=== PATIENT | male | born 1945 | race Caucasian/White ===

== ENCOUNTER 2018-02-11 00:27 | Emergency (ER) | payer MEDICARE ==
[~2018-02-11] VITALS: Ht 165.1 cm; Wt 97.5 kg
[~2018-02-11 00:27] MED LIST: AMLO5 PO; ASCO500 PO; Adult Low Dose81 MG PO; CALCAVITD PO; CLON.5 PO; DILT120 PO; GLUCOSAMINE &1 EACH PO; LOSARTAN POTASS25 MG PO; METO25ER PO; MULVITMIND PO; QUIN5 PO; SPIR25 PO; WARF5 PO; [UNRECOGNIZED DRUG - CODE] PO
[2018-02-11] MEDS ORDERED: WARF2.5 PO (01:05)
[2018-02-11] MEDS ORDERED: DONE10 PO (01:05)
[2018-02-11 01:23] LABS: BASOPHILS ABSOLUTE AUTO 0.02 K/mm3 (0.00-0.23); BASOPHILS PERCENT AUTO 0 % (0-2); EOSINOPHILS PERCENT AUTO 1 % (0-6); Hematocrit 37.7 % (37.0-53.0); Hemoglobin 12.4 g/dL (13.5-17.5); IMMATURE GRAN ABSOLUTE AUTO 0.06 K/mm3 (0.00-0.10); IMMATURE GRAN PERCENT AUTO 1 % (0-1); LYMPHOCYTES ABSOLUTE AUTO 2.03 K/mm3 (0.84-5.20); LYMPHOCYTES PERCENT AUTO 26 % (21-46); MONOCYTES PERCENT AUTO 9 % (4-13); Mean Corpuscular HGB 30.9 pg (26.0-34.0); Mean Corpuscular HGB Conc 32.9 g/dL (31.5-36.5); Mean Corpuscular Volume 94 fL (80-100); Mean Platelet Volume 9.2 fL (9.1-12.4); NEUTROPHILS ABSOLUTE AUTO 4.78 K/mm3 (1.96-9.15); NEUTROPHILS PERCENT AUTO 62 % (41-73); Platelet Count 276 K/mm3 (150-400); RDW Coefficient Variation 14.6 % (11.7-14.2); RDW Standard Deviation 50.6 fL (35.1-46.3); Red Blood Cell Count 4.01 M/mm3 (4.30-5.90); White Blood Cell Count 7.69 K/mm3 (4.00-11.30)
[2018-02-11 01:35] LABS: International Normalized Ratio 1.89; Prothrombin Time Results 20.1 Sec (9.7-11.5)
[2018-02-11 01:41] LABS: Alanine Aminotransfer (ALT/SGP 21 U/L (12-78); Albumin, Blood 3.2 g/dL (3.4-5.0); Alk Phos 51 U/L (50-136); Anion Gap 4 mmol/L (6-16); Aspartate Aminotrans (AST/SGOT 14 U/L (12-37); Bilirubin, Total 0.5 mg/dL (0.1-1.0); Blood Urea Nitrogen 19 mg/dL (8-24); Bun/Creatinine Ratio 24.7 (12.0-20.0); CO2, Blood 29 mmol/L (21-32); Calcium, Blood 8.2 mg/dL (8.5-10.1); Chloride, Blood 107 mmol/L (98-108); Creatinine, Blood 0.77 mg/dL (0.60-1.20); Globulin, Blood 3.1 g/dL (2.2-4.0); Glomerular Filtration Rate >60 (60-); Glucose, Blood 90 mg/dL (70-99); Potassium, Blood 4.3 mmol/L (3.5-5.5); Sodium, Blood 140 mmol/L (136-145); Total Protein, Blood 6.3 g/dL (6.4-8.2)
== END 2018-02-11 02:10 | disposition home or self-care (01) ==
LOC: ER 00:27
PROVIDERS: Emergency Medicine
DX: S30.0XXA Contusion of lower back and pelvis, initial encounter (principal); S80.12XA Contusion of left lower leg, initial encounter; I48.91 Unspecified atrial fibrillation; I11.0 Hypertensive heart disease with heart failure; I50.9 Heart failure, unspecified; Z91.048 Other nonmedicinal substance allergy status; Z79.01 Long term (current) use of anticoagulants; Z79.899 Other long term (current) drug therapy; Z87.891 Personal history of nicotine dependence; W19.XXXA Unspecified fall, initial encounter
CPT/HCPCS: 36415; 73502; 80053; 85025; 85610; 99283

== ENCOUNTER 2018-03-07 08:26 | Day surgery (SDC) | payer MEDICARE ==
[~2018-03-07] VITALS: Ht 165.1 cm; Wt 97.5 kg
[~2018-03-07 08:26] MED LIST changes: +DONE10 PO; +WARF2.5 PO
== END 2018-03-07 11:10 | disposition home or self-care (01) ==
LOC: ORSCSDS 08:26
PROVIDERS: Ophthalmology
PROC: 08RK3JZ Replacement of Left Lens with Synthetic Substitute, Percutaneous Approach (ICD-10-PCS; principal; 2018-03-07 10:00)
DX: H25.12 Age-related nuclear cataract, left eye (principal); I10 Essential (primary) hypertension; I48.91 Unspecified atrial fibrillation; G47.33 Obstructive sleep apnea (adult) (pediatric); E66.01 Morbid (severe) obesity due to excess calories; Z68.35 Body mass index [BMI] 35.0-35.9, adult; Z79.01 Long term (current) use of anticoagulants; Z79.899 Other long term (current) drug therapy
CPT/HCPCS: J2250; J3301; J7040; V2632

== ENCOUNTER 2018-04-25 07:11 | Day surgery (SDC) | payer MEDICARE ==
[~2018-04-25] VITALS: Ht 165.1 cm; Wt 99.5 kg
[~2018-04-25 07:11] MED LIST changes: +CALCA400CH PO; +Co Q-1010 MG PO; +FLONASE ALLERG9.9 ML; +GLUC500 PO; +HYDRA25; +PREDNISOLONE RIGHTEYE; +ZYRTEC10 M3 PO
== END 2018-04-25 08:56 | disposition home or self-care (01) ==
LOC: ORSCSDS 07:11
PROVIDERS: Ophthalmology
PROC: 08RJ3JZ Replacement of Right Lens with Synthetic Substitute, Percutaneous Approach (ICD-10-PCS; principal; 2018-04-25 08:30)
DX: H25.11 Age-related nuclear cataract, right eye (principal); I48.91 Unspecified atrial fibrillation; G47.33 Obstructive sleep apnea (adult) (pediatric); I10 Essential (primary) hypertension; Z79.01 Long term (current) use of anticoagulants; Z79.899 Other long term (current) drug therapy; Z87.891 Personal history of nicotine dependence
CPT/HCPCS: J2250; J3010; J3301; J7040; V2632

== ENCOUNTER 2019-10-10 23:14 | Emergency (ER) | payer MEDICARE ==
[~2019-10-10] VITALS: Ht 170.2 cm; Wt 93.9 kg
[2019-10-11 00:42] LABS: BASOPHILS ABSOLUTE AUTO 0.03 K/mm3 (0.00-0.23); BASOPHILS PERCENT AUTO 1 % (0-2); EOSINOPHILS ABSOLUTE AUTO 0.11 K/mm3 (0.00-0.68); EOSINOPHILS PERCENT AUTO 2 % (0-6); Hemoglobin 14.8 g/dL (13.5-17.5); IMMATURE GRAN ABSOLUTE AUTO 0.01 K/mm3 (0.00-0.10); IMMATURE GRAN PERCENT AUTO 0 % (0-1); LYMPHOCYTES ABSOLUTE AUTO 1.91 K/mm3 (0.84-5.20); LYMPHOCYTES PERCENT AUTO 35 % (21-46); MONOCYTES ABSOLUTE AUTO 0.42 K/mm3 (0.16-1.47); MONOCYTES PERCENT AUTO 8 % (4-13); Mean Corpuscular HGB 29.8 pg (26.0-34.0); Mean Corpuscular HGB Conc 32.2 g/dL (31.5-36.5); Mean Corpuscular Volume 93 fL (80-100); Mean Platelet Volume 10.3 fL (9.1-12.4); NEUTROPHILS ABSOLUTE AUTO 2.99 K/mm3 (1.96-9.15); NEUTROPHILS PERCENT AUTO 55 % (41-73); Platelet Count 242 K/mm3 (150-400); RDW Coefficient Variation 13.9 % (11.7-14.2); RDW Standard Deviation 47.4 fL (35.1-46.3); Red Blood Cell Count 4.96 M/mm3 (4.30-5.90); White Blood Cell Count 5.47 K/mm3 (4.00-11.30)
[2019-10-11 01:02] LABS: Troponin I <0.015 ng/mL (0.000-0.040)
[2019-10-11 01:03] LABS: Alanine Aminotransfer (ALT/SGP 19 U/L (12-78); Albumin, Blood 3.8 g/dL (3.4-5.0); Alk Phos 81 U/L (50-136); Anion Gap 5 mmol/L (6-16); Aspartate Aminotrans (AST/SGOT 16 U/L (12-37); Bilirubin, Total 0.3 mg/dL (0.1-1.0); Blood Urea Nitrogen 11 mg/dL (8-24); Bun/Creatinine Ratio 14.7 (12.0-20.0); CO2, Blood 30 mmol/L (21-32); Calcium, Blood 8.8 mg/dL (8.5-10.1); Chloride, Blood 105 mmol/L (98-108); Creatinine, Blood 0.75 mg/dL (0.60-1.20); Globulin, Blood 3.7 g/dL (2.2-4.0); Glomerular Filtration Rate >60 (60-); Glucose, Blood 95 mg/dL (70-99); Potassium, Blood 4.2 mmol/L (3.5-5.5); Sodium, Blood 140 mmol/L (136-145); Total Protein, Blood 7.5 g/dL (6.4-8.2)
== END 2019-10-11 02:36 | disposition home or self-care (01) ==
LOC: ER 23:14
PROVIDERS: Emergency Medicine
DX: I10 Essential (primary) hypertension (principal); Z79.899 Other long term (current) drug therapy
CPT/HCPCS: 36415; 80053; 84484; 85025; 93005; 93010; 99283-25

== ENCOUNTER → 2020-10-07 | Outpatient (CLI) | payer OTHER ==
[~2020-10-07] MED LIST changes: +ATOR40TA PO; +FURO20 PO; +QUET25 PO; +TAMS.4ER PO
[2020-10-08 09:16] LABS: Bilirubin, Urine Neg (Neg); Blood, Urine 1+ (Neg); Glucose Qualitative, Urine Neg (Neg); Ketones, Urine 1+ (Neg); Leukocyte Esterase, Urine 1+ (Neg); Nitrite, Urine Neg (Neg); Protein, Urine 2+ (Neg); Specific Gravity, Urine 1.015 (1.003-1.022); Urobilinogen, Urine NORM (Normal)
[2020-10-08 09:22] LABS: Appearance, Urine Hazy (Clear); Color, Urine Yellow (P-Yellow)
[2020-10-08 09:24] LABS: Red Blood Cells, Urine 0-2 /hpf (0-2); Squamous Epithelial Cells Rare /hpf (Few); White Blood Cells, Urine 0-2 /hpf (0-5)
[2020-10-08 09:25] LABS: Bacteria Few /hpf; Mucus Mod (0-Heavy)
== END | disposition home or self-care (01) ==
LOC: LAB 08:00 → LAB SHORT 08:00
PROVIDERS: Internal Medicine
DX: R30.0 Dysuria (principal)
CPT/HCPCS: 81001; 87086

== ENCOUNTER 2020-12-23 16:18 | Emergency (ER) | payer OTHER ==
[~2020-12-23] VITALS: Ht 172.7 cm; Wt 95.2 kg
[~2020-12-23 16:18] MED LIST changes: -ATOR40TA PO; -FURO20 PO; -QUET25 PO; -TAMS.4ER PO
[2020-12-23 18:28] LABS: BASOPHILS ABSOLUTE AUTO 0.02 K/mm3 (0.00-0.23); BASOPHILS PERCENT AUTO 0 % (0-2); EOSINOPHILS ABSOLUTE AUTO 0.05 K/mm3 (0.00-0.68); EOSINOPHILS PERCENT AUTO 1 % (0-6); Hematocrit 41.7 % (37.0-53.0); Hemoglobin 13.7 g/dL (13.5-17.5); IMMATURE GRAN ABSOLUTE AUTO 0.01 K/mm3 (0.00-0.10); IMMATURE GRAN PERCENT AUTO 0 % (0-1); LYMPHOCYTES ABSOLUTE AUTO 1.63 K/mm3 (0.84-5.20); LYMPHOCYTES PERCENT AUTO 32 % (21-46); MONOCYTES PERCENT AUTO 8 % (4-13); Mean Corpuscular HGB 29.9 pg (26.0-34.0); Mean Corpuscular HGB Conc 32.9 g/dL (31.5-36.5); Mean Corpuscular Volume 91 fL (80-100); Mean Platelet Volume 9.2 fL (9.1-12.4); NEUTROPHILS ABSOLUTE AUTO 3.05 K/mm3 (1.96-9.15); NEUTROPHILS PERCENT AUTO 59 % (41-73); Platelet Count 262 K/mm3 (150-400); RDW Coefficient Variation 15.5 % (11.7-14.2); RDW Standard Deviation 51.5 fL (35.1-46.3); Red Blood Cell Count 4.58 M/mm3 (4.30-5.90); White Blood Cell Count 5.16 K/mm3 (4.00-11.30)
[2020-12-23] MEDS ORDERED: FURO20 PO (18:41)
[2020-12-23 18:50] LABS: Alanine Aminotransfer (ALT/SGP 16 U/L (12-78); Albumin, Blood 3.7 g/dL (3.4-5.0); Alk Phos 81 U/L (50-136); Anion Gap 3 mmol/L (6-16); Aspartate Aminotrans (AST/SGOT 11 U/L (12-37); Bilirubin, Total 0.4 mg/dL (0.1-1.0); Blood Urea Nitrogen 15 mg/dL (8-24); Bun/Creatinine Ratio 21.8 (12.0-20.0); CO2, Blood 31 mmol/L (21-32); Calcium, Blood 8.8 mg/dL (8.5-10.1); Chloride, Blood 105 mmol/L (98-108); Creatinine, Blood 0.69 mg/dL (0.60-1.20); Globulin, Blood 3.6 g/dL (2.2-4.0); Glomerular Filtration Rate >60 (60-); Glucose, Blood 100 mg/dL (70-99); Potassium, Blood 4.4 mmol/L (3.5-5.5); Sodium, Blood 139 mmol/L (136-145); Total Protein, Blood 7.3 g/dL (6.4-8.2)
[2020-12-23 19:13] LABS: International Normalized Ratio 2.87; Prothrombin Time Results 28.9 Sec (9.7-11.5)
== END 2020-12-23 20:20 | disposition home or self-care (01) ==
LOC: ER 16:18
PROVIDERS: Physician Assistant
DX: R47.1 Dysarthria and anarthria (principal); R47.01 Aphasia; I11.0 Hypertensive heart disease with heart failure; I50.9 Heart failure, unspecified; I48.91 Unspecified atrial fibrillation; Z79.01 Long term (current) use of anticoagulants; Z91.09 Other allergy status, other than to drugs and biological substances; Z79.899 Other long term (current) drug therapy
CPT/HCPCS: 36415; 70450; 80053; 85025; 85610; 93005; 93010; 99285-25

== ENCOUNTER 2021-02-14 10:56 | Emergency (ER) | payer OTHER ==
[~2021-02-14] VITALS: Ht 177.8 cm; Wt 98.0 kg
[~2021-02-14 10:56] MED LIST changes: +FURO20 PO
== END 2021-02-14 14:55 | disposition home or self-care (01) ==
LOC: ER 10:56
DX: R53.1 Weakness (principal); Z91.09 Other allergy status, other than to drugs and biological substances; Z79.899 Other long term (current) drug therapy
CPT/HCPCS: 36415; 73080; 73502; 93005; 93010; 99284-25

== ENCOUNTER 2021-02-16 21:28 | Emergency (ER) | payer OTHER ==
[~2021-02-16] VITALS: Ht 167.6 cm; Wt 99.3 kg
== END 2021-02-17 00:27 | disposition home or self-care (01) ==
LOC: ER 21:28
DX: R30.0 Dysuria (principal); R35.0 Frequency of micturition; I48.91 Unspecified atrial fibrillation; I10 Essential (primary) hypertension; Z87.891 Personal history of nicotine dependence; Z91.09 Other allergy status, other than to drugs and biological substances; Z79.899 Other long term (current) drug therapy
CPT/HCPCS: 36415; 51798; 74176; 80053; 81001; 85025; 99284-25

== ENCOUNTER 2021-02-18 20:00 | Emergency (ER) | payer OTHER ==
[~2021-02-18] VITALS: Ht 170.2 cm; Wt 99.3 kg
[2021-02-18 21:13] LABS: BASOPHILS ABSOLUTE AUTO 0.02 K/mm3 (0.00-0.23); BASOPHILS PERCENT AUTO 0 % (0-2); EOSINOPHILS ABSOLUTE AUTO 0.18 K/mm3 (0.00-0.68); EOSINOPHILS PERCENT AUTO 4 % (0-6); Hematocrit 37.3 % (37.0-53.0); Hemoglobin 12.3 g/dL (13.5-17.5); IMMATURE GRAN ABSOLUTE AUTO 0.02 K/mm3 (0.00-0.10); IMMATURE GRAN PERCENT AUTO 0 % (0-1); LYMPHOCYTES ABSOLUTE AUTO 1.97 K/mm3 (0.84-5.20); LYMPHOCYTES PERCENT AUTO 43 % (21-46); MONOCYTES PERCENT AUTO 9 % (4-13); Mean Corpuscular HGB 30.5 pg (26.0-34.0); Mean Corpuscular Volume 93 fL (80-100); Mean Platelet Volume 9.4 fL (9.1-12.4); NEUTROPHILS ABSOLUTE AUTO 1.95 K/mm3 (1.96-9.15); NEUTROPHILS PERCENT AUTO 43 % (41-73); Platelet Count 233 K/mm3 (150-400); RDW Coefficient Variation 15.7 % (11.7-14.2); RDW Standard Deviation 53.7 fL (35.1-46.3); Red Blood Cell Count 4.03 M/mm3 (4.30-5.90); White Blood Cell Count 4.54 K/mm3 (4.00-11.30)
[2021-02-18 21:38] LABS: Alanine Aminotransfer (ALT/SGP 29 U/L (12-78); Albumin, Blood 3.3 g/dL (3.4-5.0); Albumin/Globulin Ratio 0.9 (0.8-1.8); Alk Phos 82 U/L (50-136); Anion Gap 7 mmol/L (6-16); Aspartate Aminotrans (AST/SGOT 36 U/L (12-37); Bilirubin, Total 0.5 mg/dL (0.1-1.0); Blood Urea Nitrogen 22 mg/dL (8-24); Bun/Creatinine Ratio 29.3 (12.0-20.0); CO2, Blood 28 mmol/L (21-32); Calcium, Blood 8.2 mg/dL (8.5-10.1); Chloride, Blood 104 mmol/L (98-108); Creatinine, Blood 0.75 mg/dL (0.60-1.20); Globulin, Blood 3.6 g/dL (2.2-4.0); Glomerular Filtration Rate >60 (60-); Glucose, Blood 99 mg/dL (70-99); Potassium, Blood 3.9 mmol/L (3.5-5.5); Sodium, Blood 139 mmol/L (136-145); Total Protein, Blood 6.9 g/dL (6.4-8.2)
== END 2021-02-19 00:49 | disposition home or self-care (01) ==
LOC: ER 20:00
PROVIDERS: Physician Assistant
DX: N32.81 Overactive bladder (principal); Z79.01 Long term (current) use of anticoagulants; Z79.899 Other long term (current) drug therapy
CPT/HCPCS: 36415; 51798; 80053; 85025; 99283

== ENCOUNTER 2021-02-26 19:10 | Emergency (ER) | payer OTHER ==
[~2021-02-26] VITALS: Ht 177.8 cm; Wt 113.4 kg
[2021-02-26] MEDS ORDERED: TAMS.4ER PO (19:43)
[2021-02-26] MEDS ORDERED: ATOR40TA PO (19:44)
[2021-02-26 20:12] LABS: BASOPHILS ABSOLUTE AUTO 0.03 K/mm3 (0.00-0.23); BASOPHILS PERCENT AUTO 1 % (0-2); EOSINOPHILS ABSOLUTE AUTO 0.11 K/mm3 (0.00-0.68); EOSINOPHILS PERCENT AUTO 2 % (0-6); Hematocrit 36.2 % (37.0-53.0); Hemoglobin 12.2 g/dL (13.5-17.5); IMMATURE GRAN ABSOLUTE AUTO 0.01 K/mm3 (0.00-0.10); IMMATURE GRAN PERCENT AUTO 0 % (0-1); LYMPHOCYTES ABSOLUTE AUTO 2.01 K/mm3 (0.84-5.20); LYMPHOCYTES PERCENT AUTO 37 % (21-46); MONOCYTES ABSOLUTE AUTO 0.65 K/mm3 (0.16-1.47); MONOCYTES PERCENT AUTO 12 % (4-13); Mean Corpuscular HGB 30.7 pg (26.0-34.0); Mean Corpuscular HGB Conc 33.7 g/dL (31.5-36.5); Mean Corpuscular Volume 91 fL (80-100); Mean Platelet Volume 9.1 fL (9.1-12.4); NEUTROPHILS ABSOLUTE AUTO 2.65 K/mm3 (1.96-9.15); NEUTROPHILS PERCENT AUTO 49 % (41-73); Platelet Count 233 K/mm3 (150-400); RDW Coefficient Variation 15.3 % (11.7-14.2); RDW Standard Deviation 51.1 fL (35.1-46.3); Red Blood Cell Count 3.98 M/mm3 (4.30-5.90); White Blood Cell Count 5.46 K/mm3 (4.00-11.30)
[2021-02-26 20:46] LABS: Alanine Aminotransfer (ALT/SGP 23 U/L (12-78); Albumin, Blood 3.4 g/dL (3.4-5.0); Alk Phos 85 U/L (50-136); Anion Gap 5 mmol/L (6-16); Aspartate Aminotrans (AST/SGOT 30 U/L (12-37); Bilirubin, Total 0.6 mg/dL (0.1-1.0); Blood Urea Nitrogen 11 mg/dL (8-24); Bun/Creatinine Ratio 18.1 (12.0-20.0); CO2, Blood 25 mmol/L (21-32); Calcium, Blood 8.2 mg/dL (8.5-10.1); Chloride, Blood 102 mmol/L (98-108); Creatinine, Blood 0.61 mg/dL (0.60-1.20); Globulin, Blood 3.4 g/dL (2.2-4.0); Glomerular Filtration Rate >60 (60-); Glucose, Blood 97 mg/dL (70-99); Magnesium, Blood 1.9 mg/dL (1.6-2.4); Phosphorus, Blood 2.7 mg/dL (2.5-4.9); Sodium, Blood 132 mmol/L (136-145); Total Protein, Blood 6.8 g/dL (6.4-8.2)
[2021-02-26 20:54] LABS: Source, Urine Clean Catch
[2021-02-26 20:59] LABS: Bilirubin, Urine Neg (Neg); Blood, Urine 1+ (Neg); Glucose Qualitative, Urine Neg (Neg); Ketones, Urine 1+ (Neg); Leukocyte Esterase, Urine Neg (Neg); Nitrite, Urine Neg (Neg); Protein, Urine Neg (Neg); Urobilinogen, Urine NORM (Normal)
[2021-02-26 21:05] LABS: Appearance, Urine Clear (Clear); Color, Urine Pale Yellow (P-Yellow)
[2021-02-26 21:06] LABS: Red Blood Cells, Urine 0-2 /hpf (0-2); White Blood Cells, Urine 0-2 /hpf (0-5)
[2021-02-26 21:07] LABS: Bacteria Few /hpf; Squamous Epithelial Cells Rare /hpf (Few)
[2021-02-27] MEDS ORDERED: QUET25 PO (00:13)
== END 2021-02-27 00:55 | disposition home or self-care (01) ==
LOC: ER 19:10
PROVIDERS: Physician Assistant
DX: F03.91 Unspecified dementia, unspecified severity, with behavioral disturbance (principal); R45.1 Restlessness and agitation; I10 Essential (primary) hypertension; I48.91 Unspecified atrial fibrillation; Z79.01 Long term (current) use of anticoagulants; Z79.899 Other long term (current) drug therapy; Z91.09 Other allergy status, other than to drugs and biological substances; Z87.891 Personal history of nicotine dependence
CPT/HCPCS: 70450; 80053; 81001; 83735; 84100; 85025; 93005; 93010; 96374; 96376; 99285-25; A9270; J2060

== ENCOUNTER 2021-06-07 20:02 | Emergency (ER) | payer OTHER ==
[~2021-06-07] VITALS: Ht 172.7 cm; Wt 95.2 kg
[~2021-06-07 20:02] MED LIST changes: +ATOR40TA PO; +Amlodipine Bes2.5 MG PO; +QUET25 PO; +TAMS.4ER PO
[2021-06-07 20:17] LABS: Source, Urine Clean Catch
[2021-06-07 20:20] LABS: Appearance, Urine Hazy (Clear); Bilirubin, Urine Neg (Neg); Blood, Urine 2+ (Neg); Color, Urine Yellow (P-Yellow); Glucose Qualitative, Urine Neg (Neg); Ketones, Urine Neg (Neg); Leukocyte Esterase, Urine 3+ (Neg); Nitrite, Urine Neg (Neg); Protein, Urine 2+ (Neg); Urobilinogen, Urine NORM (Normal)
[2021-06-07 20:31] LABS: Spermatozoa Many /hpf
[2021-06-07 20:32] LABS: Bacteria Rare /hpf; Red Blood Cells, Urine 0-2 /hpf (0-2); Squamous Epithelial Cells Rare /hpf (Few); White Blood Cells, Urine 25-50 /hpf (0-5)
[2021-06-07 20:50] LABS: BASOPHILS ABSOLUTE AUTO 0.03 K/mm3 (0.00-0.23); BASOPHILS PERCENT AUTO 0 % (0-2); EOSINOPHILS ABSOLUTE AUTO 0.04 K/mm3 (0.00-0.68); EOSINOPHILS PERCENT AUTO 0 % (0-6); Hematocrit 36.5 % (37.0-53.0); Hemoglobin 12.1 g/dL (13.5-17.5); IMMATURE GRAN ABSOLUTE AUTO 0.05 K/mm3 (0.00-0.10); IMMATURE GRAN PERCENT AUTO 1 % (0-1); LYMPHOCYTES PERCENT AUTO 12 % (21-46); MONOCYTES ABSOLUTE AUTO 0.41 K/mm3 (0.16-1.47); MONOCYTES PERCENT AUTO 4 % (4-13); Mean Corpuscular HGB 30.6 pg (26.0-34.0); Mean Corpuscular HGB Conc 33.2 g/dL (31.5-36.5); Mean Corpuscular Volume 92 fL (80-100); Mean Platelet Volume 10.5 fL (9.1-12.4); NEUTROPHILS ABSOLUTE AUTO 8.59 K/mm3 (1.96-9.15); NEUTROPHILS PERCENT AUTO 83 % (41-73); Platelet Count 202 K/mm3 (150-400); RDW Coefficient Variation 14.8 % (11.7-14.2); RDW Standard Deviation 50.6 fL (35.1-46.3); Red Blood Cell Count 3.95 M/mm3 (4.30-5.90); White Blood Cell Count 10.32 K/mm3 (4.00-11.30)
[2021-06-07 21:09] LABS: Alanine Aminotransfer (ALT/SGP 19 U/L (12-78); Albumin, Blood 2.8 g/dL (3.4-5.0); Albumin/Globulin Ratio 0.7 (0.8-1.8); Alk Phos 99 U/L (50-136); Anion Gap 4 mmol/L (6-16); Aspartate Aminotrans (AST/SGOT 22 U/L (12-37); Bilirubin, Total 0.6 mg/dL (0.1-1.0); Blood Urea Nitrogen 17 mg/dL (8-24); CO2, Blood 25 mmol/L (21-32); Calcium, Blood 7.9 mg/dL (8.5-10.1); Chloride, Blood 107 mmol/L (98-108); Creatinine, Blood 0.68 mg/dL (0.60-1.20); Globulin, Blood 3.8 g/dL (2.2-4.0); Glomerular Filtration Rate >60 (60-); Glucose, Blood 124 mg/dL (70-99); Potassium, Blood 4.3 mmol/L (3.5-5.5); Sodium, Blood 136 mmol/L (136-145); Total Protein, Blood 6.6 g/dL (6.4-8.2)
== END 2021-06-07 23:31 | disposition left against medical advice (07) ==
LOC: ER 20:02
PROVIDERS: Physician Assistant
DX: R53.1 Weakness (principal); R41.0 Disorientation, unspecified; Z79.01 Long term (current) use of anticoagulants; Z79.899 Other long term (current) drug therapy; Z53.20 Procedure and treatment not carried out because of patient's decision for unspecified reasons
CPT/HCPCS: 80053; 81001; 83605; 85025; 87077; 87086; 87186; 99283

== ENCOUNTER 2021-06-08 17:33 | Inpatient (IN) | payer OTHER, MEDICARE ==
[~2021-06-08] VITALS: Ht 170.2 cm; Wt 104.7 kg
[2021-06-08 19:50] LABS: Source, Urine Clean Catch
[2021-06-08 19:55] LABS: Appearance, Urine Clear (Clear); Bilirubin, Urine Neg (Neg); Blood, Urine 5+ (Neg); Color, Urine Yellow (P-Yellow); Glucose Qualitative, Urine Neg (Neg); Ketones, Urine Neg (Neg); Leukocyte Esterase, Urine 3+ (Neg); Nitrite, Urine Pos (Neg); Protein, Urine 3+ (Neg); Urobilinogen, Urine 1+ (Normal)
[2021-06-08 20:06] LABS: Bacteria Many /hpf; Red Blood Cells, Urine 0-2 /hpf (0-2); Squamous Epithelial Cells Not Seen /hpf (Few)
[2021-06-08 20:46] LABS: BASOPHILS ABSOLUTE AUTO 0.02 K/mm3 (0.00-0.23); BASOPHILS PERCENT AUTO 0 % (0-2); EOSINOPHILS ABSOLUTE AUTO 0.01 K/mm3 (0.00-0.68); EOSINOPHILS PERCENT AUTO 0 % (0-6); Hematocrit 38.4 % (37.0-53.0); Hemoglobin 12.6 g/dL (13.5-17.5); IMMATURE GRAN ABSOLUTE AUTO 0.16 K/mm3 (0.00-0.10); IMMATURE GRAN PERCENT AUTO 1 % (0-1); LYMPHOCYTES ABSOLUTE AUTO 0.96 K/mm3 (0.84-5.20); LYMPHOCYTES PERCENT AUTO 6 % (21-46); MONOCYTES ABSOLUTE AUTO 0.72 K/mm3 (0.16-1.47); MONOCYTES PERCENT AUTO 5 % (4-13); Mean Corpuscular HGB 30.7 pg (26.0-34.0); Mean Corpuscular HGB Conc 32.8 g/dL (31.5-36.5); Mean Corpuscular Volume 94 fL (80-100); NEUTROPHILS ABSOLUTE AUTO 13.82 K/mm3 (1.96-9.15); NEUTROPHILS PERCENT AUTO 88 % (41-73); Platelet Count 171 K/mm3 (150-400); RDW Coefficient Variation 14.8 % (11.7-14.2); RDW Standard Deviation 51.3 fL (35.1-46.3); White Blood Cell Count 15.69 K/mm3 (4.00-11.30)
[2021-06-08 21:06] LABS: Alanine Aminotransfer (ALT/SGP 19 U/L (12-78); Albumin/Globulin Ratio 0.8 (0.8-1.8); Alk Phos 114 U/L (50-136); Anion Gap 6 mmol/L (6-16); Aspartate Aminotrans (AST/SGOT 22 U/L (12-37); Bilirubin, Total 0.6 mg/dL (0.1-1.0); Blood Urea Nitrogen 15 mg/dL (8-24); Bun/Creatinine Ratio 23.1 (12.0-20.0); CO2, Blood 25 mmol/L (21-32); Calcium, Blood 8.6 mg/dL (8.5-10.1); Chloride, Blood 107 mmol/L (98-108); Creatinine, Blood 0.65 mg/dL (0.60-1.20); Globulin, Blood 3.9 g/dL (2.2-4.0); Glomerular Filtration Rate >60 (60-); Glucose, Blood 128 mg/dL (70-99); Potassium, Blood 3.5 mmol/L (3.5-5.5); Sodium, Blood 138 mmol/L (136-145); Total Protein, Blood 6.9 g/dL (6.4-8.2); Troponin I <0.015 ng/mL (0.000-0.040)
--- NOTE | 2021-06-08 23:48 | NUR ---
transfer report from [facility] ECHOCARDIOGRAPHY TECH on PT with sepsis & dementia with UTI. HX AFIB with RVR on coumadin. Await admission. Fevers in ER 99.7 last. Recieved rocephin. at bedside but RN says she won't accompany to floor despite dementia.
[2021-06-09] MEDS ORDERED: WARF5 PO (01:00)
[2021-06-09] MEDS ORDERED: Flonase 0.05% N16 GM (01:07)
[2021-06-09] MEDS ORDERED: DOCU100 PO (01:08)
[2021-06-09] MEDS ORDERED: MELA3 PO (01:16)
[2021-06-09] MEDS ORDERED: MULTIPLE VITAM1 EACH PO (01:17)
[2021-06-09] MEDS ORDERED: IBUP600 PO (01:18)
[2021-06-09] MEDS ORDERED: ACET325 PO (01:18)
[2021-06-09] MEDS ORDERED: MIRALAX17 GM PO (01:20)
[2021-06-09] MEDS ORDERED: LUBRICATING TEA15 ML (01:22)
--- NOTE | 2021-06-09 03:28 | NUR ---
75 year old Male NAvy admitted with sepsis r/t UTI & he recieved 2 l NS in ER & rocephin. He has hypertension & dementia, with recent dehydration & falls poor oral intake. MARILIN on oral appliance at home, 2.5 l NC CPAP intil. is primary caregiver for PT who requires extensive care. PT's verified home RX & details PT unable to provide. takes PT's bilat hearing aides home & eyeglasses & [employer]. Full code status verified by . PT needs assist with using urinal voids 50 ml erin urine with urgency.
[2021-06-09 05:27] LABS: BASOPHILS ABSOLUTE AUTO 0.01 K/mm3 (0.00-0.23); BASOPHILS PERCENT AUTO 0 % (0-2); EOSINOPHILS ABSOLUTE AUTO 0.02 K/mm3 (0.00-0.68); EOSINOPHILS PERCENT AUTO 0 % (0-6); Hematocrit 32.8 % (37.0-53.0); Hemoglobin 10.8 g/dL (13.5-17.5); IMMATURE GRAN ABSOLUTE AUTO 0.06 K/mm3 (0.00-0.10); IMMATURE GRAN PERCENT AUTO 1 % (0-1); LYMPHOCYTES ABSOLUTE AUTO 1.86 K/mm3 (0.84-5.20); LYMPHOCYTES PERCENT AUTO 18 % (21-46); MONOCYTES ABSOLUTE AUTO 0.51 K/mm3 (0.16-1.47); MONOCYTES PERCENT AUTO 5 % (4-13); Mean Corpuscular HGB Conc 32.9 g/dL (31.5-36.5); Mean Corpuscular Volume 94 fL (80-100); Mean Platelet Volume 10.6 fL (9.1-12.4); NEUTROPHILS ABSOLUTE AUTO 7.73 K/mm3 (1.96-9.15); NEUTROPHILS PERCENT AUTO 76 % (41-73); Platelet Count 150 K/mm3 (150-400); RDW Standard Deviation 51.6 fL (35.1-46.3); Red Blood Cell Count 3.48 M/mm3 (4.30-5.90); White Blood Cell Count 10.19 K/mm3 (4.00-11.30)
[2021-06-09 05:36] LABS: International Normalized Ratio 2.27; Prothrombin Time Results 23.4 Sec (9.7-11.5)
[2021-06-09 05:59] LABS: Alanine Aminotransfer (ALT/SGP 17 U/L (12-78); Albumin, Blood 2.4 g/dL (3.4-5.0); Albumin/Globulin Ratio 0.7 (0.8-1.8); Alk Phos 99 U/L (50-136); Anion Gap 5 mmol/L (6-16); Aspartate Aminotrans (AST/SGOT 25 U/L (12-37); Bilirubin, Total 0.5 mg/dL (0.1-1.0); Blood Urea Nitrogen 12 mg/dL (8-24); Bun/Creatinine Ratio 18.8 (12.0-20.0); CO2, Blood 25 mmol/L (21-32); Calcium, Blood 7.8 mg/dL (8.5-10.1); Chloride, Blood 110 mmol/L (98-108); Creatinine, Blood 0.64 mg/dL (0.60-1.20); Globulin, Blood 3.4 g/dL (2.2-4.0); Glomerular Filtration Rate >60 (60-); Glucose, Blood 104 mg/dL (70-99); Potassium, Blood 3.5 mmol/L (3.5-5.5); Sodium, Blood 140 mmol/L (136-145); Total Protein, Blood 5.8 g/dL (6.4-8.2)
--- NOTE | 2021-06-09 06:00 | NUR ---
DR Dugan called & updated on reported swallow difficulty Speech therapy eval ordered.
--- NOTE | 2021-06-09 18:22 | NUR ---
SHIFT SUMMARY PT IS AO TO SELF AND FAMILY. PT DENIES PAIN, N/V, SOB. PT IS 2 MAX ASSIST TO BCC. NO PROCEDURES DONE THIS SHIFT. PT APPETITE IS MODERATE TO GOOD. PLAN IS TO MONITOR BLOOD CULTURES TOMORROW. PT'S IN TO VISIT THIS JOSEP. PT IS IN BED , CALL LIGHT IN REACH, ALARM ON.
[2021-06-10 05:31] LABS: International Normalized Ratio 1.95; Prothrombin Time Results 20.3 Sec (9.7-11.5)
--- NOTE | 2021-06-10 06:14 | NUR ---
75 year old MAle with dementia sepsis UTI continues with intermittant alertness but has periods where he has poor safety awareness. PT incontinent of urine large amts at night. He was able to have pelleted bowel movement on bedpan. Set off bed alarm multiple times this AM wanting to find his hat, get dressed etc. PT is 2 max assist for toileting bed mobility. not out of bed this shift. Very heary to turn & unable to ambulate. On oxygen 2 l NC for severe MARILIN
--- NOTE | 2021-06-10 17:28 | NUR ---
SHIFT SUMMARY PT IS AO TO FAMILY AND SELF. PT DENIES PAIN, N/V, SOB. PT WORKED WITH PT/OT WHO DETERMINED PT QUALIFIES FOR SNF ON DC. PT APPETITE IS GOD. NO PROCEDURES DONE THIS SHIFT. PT'S IN TO VISIT TODAY. PLAN IS FOR SNF PLACEMENT. PT IS IN BED, CALL LIGHT IN REACH, LOW POSITION.
--- NOTE | 2021-06-11 05:01 | NUR ---
SHIFT SUMMARY: PT IS ALERT AND ORIENTED TO SELF AND FAMILY. PT IS A HEAVY 2 PERSON ASSIST, NOT OUT OF BED OVERNIGHT. PT INCONTINENT SEVERAL TIMES, CHANGED AND CLEANED NEEDED. PT HAD A FEVER OVERNIGHT, GAVE PRN TYLENOL. PT DENIES PAIN, NAUSEA, VOMITING, AND SOB. 2.5 L O2 KEEPING SATS > 90%. PT SLEPT MUCH OF THE NIGHT WHEN NOT DISTURBED. BED IN LOW POSITION, CALL LIGHT WITHIN REACH, BED ALARM SET. WILL CONTINUE TO MONITOR AND REPORT TO DAY NURSE.
[2021-06-11 05:24] LABS: International Normalized Ratio 2.32; Prothrombin Time Results 23.9 Sec (9.7-11.5)
--- NOTE | 2021-06-11 12:37 | NUR ---
,TRAV, UPDATED ON PATIENT CONDITION.
--- NOTE | 2021-06-11 16:47 | NUR ---
ALERT TO SELF AND FAMILY. HX DEMENTIA. ON 2.5 LPM VIA N/C WHICH IS HIS NORM. HAS SLEEP APNEA BUT CAN NOT TOLERATE CPAP. BED ALARM ON. RELATIVE IN TO VISIT. WAS TOO DROWSEY THIS AM TO TAKE P.O. MEDS WITH AWARE. TM
[2021-06-12 05:08] LABS: International Normalized Ratio 2.64
[2021-06-12 05:31] LABS: Anion Gap 5 mmol/L (6-16); Blood Urea Nitrogen 14 mg/dL (8-24); Bun/Creatinine Ratio 21.8 (12.0-20.0); CO2, Blood 29 mmol/L (21-32); Calcium, Blood 8.3 mg/dL (8.5-10.1); Chloride, Blood 104 mmol/L (98-108); Creatinine, Blood 0.64 mg/dL (0.60-1.20); Glomerular Filtration Rate >60 (60-); Glucose, Blood 111 mg/dL (70-99); Potassium, Blood 3.5 mmol/L (3.5-5.5); Sodium, Blood 138 mmol/L (136-145)
--- NOTE | 2021-06-12 05:54 | NUR ---
SHIFT SUMMARY: PT IS ALERT AND CONFUSED AT BASELINE, HX OF DEMENTIA. PT IS A MAX ASSIST FOR TRANSFERS AND CHANGES, NOT OUT OF BED OVERNIGHT. INCONTINENT SEVERAL TIMES, CHANGED AND CLEANED NEEDED. PT ON 2.5 L O2 KEEPING SATS > 90%. PT REMAINED AFEBRILE OVERNIGHT. PT SHOWS NO S/S FOR PAIN, NAUSEA, VOMITING, OR SOB. POSS DC TODAY. BED IN LOW POSITION, CALL LIGHT WITHIN REACH. WILL CONTINUE TO MONITOR.
[2021-06-12] MEDS ORDERED: DOXY100 PO (12:00)
[2021-06-12 12:12] LABS: SARS-Cov-2 (COVID-19) PCR, MMC NEGATIVE (NEGATIVE)
--- NOTE | 2021-06-12 13:57 | NUR ---
Pt is ready to discharge to SNF. arrived to hospital and she states that pt appears miller and unwell - too unwell to go to SNF. She reports that his baseline temperature is 96 and he is 98 at this time, checked at her request. She concludes that he still has a fever since this is two degrees from his normal. She states that pt is breathing from his mouth and not his nose as usual either (reports that she noticed this when he first got sick on Monday. Call to Dr. Brown to come to room, as Zena () is requesting. He states he will come speak to her.
--- NOTE | 2021-06-12 15:12 | NUR ---
Pt has left for facility. has been at bedside for a few hours now. She spoke with Dr. Brown and is fine with the pt going to therapy. Pt dressed by staff and ready to go. Packet in [facility], given to EMS for transport. Attempted to call report X2 to [facility], however, nurse Venancio reports that he was not expecting an admit to come from the hospital today. Venancio has refused twice to take report on this patient, stating he didn't know about this admit, therefore is unable to receive report and unable to take patient today. Spoke to charge nurses and real estate legal secretary. Inserter reports that she has talked to Mary at [facility] and there should be no problems with the pt leaving for [facility] today. Discussed with charge nurses. Pt is currently on his way to [facility], all belonging are with pt's .
--- NOTE | 2021-06-12 15:35 | NUR ---
Report given to Venancio nurse, at [facility].
== END 2021-06-12 15:11 | DRG 871 ==
LOC: ER 17:33 → MEDS 22:35
PROVIDERS: Internal Medicine; Physician Assistant; ADMIT Internal Medicine
DX: A41.59 Other Gram-negative sepsis (principal); G92 Toxic encephalopathy; N39.0 Urinary tract infection, site not specified; I48.20 Chronic atrial fibrillation, unspecified; B96.1 Klebsiella pneumoniae [K. pneumoniae] as the cause of diseases classified elsewhere; I10 Essential (primary) hypertension; G31.83 Neurocognitive disorder with Lewy bodies; Z20.822 Contact with and (suspected) exposure to COVID-19; F02.80 Dementia in other diseases classified elsewhere, unspecified severity, without behavioral disturbance, psychotic disturbance, mood disturbance, and anxiety; G47.33 Obstructive sleep apnea (adult) (pediatric); Z79.899 Other long term (current) drug therapy; Z91.048 Other nonmedicinal substance allergy status; Z87.891 Personal history of nicotine dependence; Z79.01 Long term (current) use of anticoagulants
CPT/HCPCS: 36415; 71045; 80048; 80053; 81001; 83605; 84484; 85025; 85610; 87040; 87077; 87086; 87186; 92610; 93005; 93010; 96365; 97110; 97162; 97166; 97530; 99285-25; A9270; J0696; J7030; U0004

== ENCOUNTER → 2021-08-10 | Outpatient (CLI) | payer OTHER ==
[~2021-08-10] MED LIST changes: +ACET325 PO; +DOCU100 PO; +DOXY100 PO; +Flonase 0.05% N16 GM; +IBUP600 PO; +LUBRICATING TEA15 ML; +MELA3 PO; +MIRALAX17 GM PO; +MULTIPLE VITAM1 EACH PO
[2021-08-10 18:12] LABS: Appearance, Urine Clear (Clear); Bilirubin, Urine Neg (Neg); Blood, Urine 1+ (Neg); Color, Urine Amber (P-Yellow); Glucose Qualitative, Urine Neg (Neg); Ketones, Urine 1+ (Neg); Leukocyte Esterase, Urine 1+ (Neg); Nitrite, Urine Neg (Neg); Protein, Urine 2+ (Neg); Urobilinogen, Urine 1+ (Normal)
[2021-08-10 19:04] LABS: Bacteria Few /hpf; Squamous Epithelial Cells Few /hpf (Few)
[2021-08-10 19:05] LABS: Mucus Mod (0-Heavy)
== END | disposition home or self-care (01) ==
LOC: LAB SHORT 17:07
PROVIDERS: Internal Medicine
DX: N39.0 Urinary tract infection, site not specified (principal)
CPT/HCPCS: 81001; 87086

== ENCOUNTER → 2021-09-15 | Outpatient (CLI) | payer OTHER | END | disposition home or self-care (01) | LOC: LAB SHORT 11:25 | DX: D48.5 Neoplasm of uncertain behavior of skin (principal) | CPT/HCPCS: 88305 ==

== ENCOUNTER → 2022-05-19 | Outpatient (CLI) | payer OTHER ==
[2022-05-20 16:41] LABS: Campylobacter Sp Not Detected (NOT DETECT)
[2022-05-20 16:42] LABS: Adenovirus F 40/41 Not Detected (NOT DETECT); Astrovirus Not Detected (NOT DETECT); Cryptosporidium Not Detected (NOT DETECT); Cyclospora Cayetanensis Not Detected (NOT DETECT); E. Coli O157 Not Detected (NOT DETECT); Entamoeba Histolytica Not Detected (NOT DETECT); Enteroaggregative E. coli-EAEC Not Detected (NOT DETECT); Enteropathogenic E. coli-EPEC Not Detected (NOT DETECT); Enterotoxigenic E. coli-ETEC Not Detected (NOT DETECT); Giardia Lamblia Not Detected (NOT DETECT); Norovirus GI/GII Not Detected (NOT DETECT); Plesiomonas Shigelloides Not Detected (NOT DETECT); Rotavirus A Not Detected (NOT DETECT); Salmonella Sp Not Detected (NOT DETECT); Sapovirus Not Detected (NOT DETECT); Shiga Toxin-prod E. coli-STEC Not Detected (NOT DETECT); Shigella/Enteroin E. coli-EIEC Not Detected (NOT DETECT); Vibrio Cholerae Not Detected (NOT DETECT); Vibrio Sp Not Detected (NOT DETECT); Yersinia Enterocolitica Not Detected (NOT DETECT)
== END | disposition home or self-care (01) ==
LOC: LAB SHORT 11:48 → LAB 11:48
PROVIDERS: Internal Medicine
DX: R19.7 Diarrhea, unspecified (principal)
CPT/HCPCS: 87507

== ENCOUNTER → 2022-05-29 | Outpatient (CLI) | payer OTHER | END | disposition home or self-care (01) | LOC: LAB 17:06 → LAB SHORT 17:06 | DX: N39.0 Urinary tract infection, site not specified (principal) | CPT/HCPCS: 87077; 87086; 87186 ==

== ENCOUNTER → 2022-07-08 | Outpatient (CLI) | payer OTHER ==
[~2022-07-08] MED LIST changes: +HYDRA25 PO; +LOSA25 PO; -LOSARTAN POTASS25 MG PO
[2022-07-08 20:20] LABS: Campylobacter Sp Not Detected (NOT DETECT); Cryptosporidium Not Detected (NOT DETECT); Cyclospora Cayetanensis Not Detected (NOT DETECT); E. Coli O157 Not Detected (NOT DETECT); Entamoeba Histolytica Not Detected (NOT DETECT); Enteroaggregative E. coli-EAEC Not Detected (NOT DETECT); Enteropathogenic E. coli-EPEC Not Detected (NOT DETECT); Enterotoxigenic E. coli-ETEC Not Detected (NOT DETECT); Plesiomonas Shigelloides Not Detected (NOT DETECT); Salmonella Sp Not Detected (NOT DETECT); Shiga Toxin-prod E. coli-STEC Not Detected (NOT DETECT); Shigella/Enteroin E. coli-EIEC Not Detected (NOT DETECT); Vibrio Cholerae Not Detected (NOT DETECT); Vibrio Sp Not Detected (NOT DETECT); Yersinia Enterocolitica Not Detected (NOT DETECT)
[2022-07-08 20:21] LABS: Adenovirus F 40/41 Not Detected (NOT DETECT); Astrovirus Not Detected (NOT DETECT); Giardia Lamblia Not Detected (NOT DETECT); Norovirus GI/GII Not Detected (NOT DETECT); Rotavirus A Not Detected (NOT DETECT); Sapovirus Not Detected (NOT DETECT)
== END | disposition home or self-care (01) ==
LOC: LAB 16:01 → LAB SHORT 16:01
PROVIDERS: Internal Medicine Gastroenterology
DX: R19.7 Diarrhea, unspecified (principal)
CPT/HCPCS: 87507

== ENCOUNTER 2022-08-16 14:36 | Emergency (ER) | payer OTHER ==
[~2022-08-16] VITALS: Ht 172.7 cm; Wt 98.4 kg
[~2022-08-16 14:36] MED LIST changes: -HYDRA25 PO
[2022-08-16] MEDS ORDERED: HYDRA25 PO (15:09)
[2022-08-16] MEDS ORDERED: Amlodipine Bes2.5 MG PO (15:09)
[2022-08-16] MEDS ORDERED: ATOR40TA PO (15:10)
[2022-08-16 15:41] LABS: BASOPHILS ABSOLUTE AUTO 0.02 K/mm3 (0.00-0.23); BASOPHILS PERCENT AUTO 0 % (0-2); EOSINOPHILS ABSOLUTE AUTO 0.04 K/mm3 (0.00-0.68); EOSINOPHILS PERCENT AUTO 1 % (0-6); Hematocrit 36.8 % (37.0-53.0); Hemoglobin 11.9 g/dL (13.5-17.5); IMMATURE GRAN ABSOLUTE AUTO 0.04 K/mm3 (0.00-0.10); IMMATURE GRAN PERCENT AUTO 1 % (0-1); LYMPHOCYTES ABSOLUTE AUTO 1.24 K/mm3 (0.84-5.20); LYMPHOCYTES PERCENT AUTO 23 % (21-46); MONOCYTES ABSOLUTE AUTO 0.47 K/mm3 (0.16-1.47); MONOCYTES PERCENT AUTO 9 % (4-13); Mean Corpuscular HGB 30.8 pg (26.0-34.0); Mean Corpuscular HGB Conc 32.3 g/dL (31.5-36.5); Mean Corpuscular Volume 95 fL (80-100); Mean Platelet Volume 10.2 fL (9.1-12.4); NEUTROPHILS ABSOLUTE AUTO 3.64 K/mm3 (1.96-9.15); NEUTROPHILS PERCENT AUTO 67 % (41-73); Platelet Count 201 K/mm3 (150-400); RDW Coefficient Variation 14.8 % (11.7-14.2); RDW Standard Deviation 51.8 fL (35.1-46.3); Red Blood Cell Count 3.86 M/mm3 (4.30-5.90); White Blood Cell Count 5.45 K/mm3 (4.00-11.30)
[2022-08-16 15:57] LABS: Albumin, Blood 3.3 g/dL (3.4-5.0); Bilirubin, Total 0.7 mg/dL (0.1-1.0); Bun/Creatinine Ratio 14.3 (12.0-20.0); Calcium, Blood 8.8 mg/dL (8.5-10.1); Creatinine, Blood 0.77 mg/dL (0.60-1.20); Globulin, Blood 3.4 g/dL (2.2-4.0); Potassium, Blood 3.9 mmol/L (3.5-5.5); Total Protein, Blood 6.7 g/dL (6.4-8.2)
[2022-08-16 16:41] LABS: Source, Urine Voided
[2022-08-16 17:55] LABS: Appearance, Urine Clear (Clear); Bilirubin, Urine Neg (Neg); Blood, Urine Neg (Neg); Color, Urine Yellow (P-Yellow); Glucose Qualitative, Urine Neg (Neg); Ketones, Urine Neg (Neg); Leukocyte Esterase, Urine 1+ (Neg); Nitrite, Urine Neg (Neg); Protein, Urine Neg (Neg); Specific Gravity, Urine 1.015 (1.003-1.022); Urobilinogen, Urine NORM (Normal)
[2022-08-16 18:25] LABS: Bacteria Mod /hpf; Mucus Light (0-Heavy); Red Blood Cells, Urine 0-2 /hpf (0-2); Squamous Epithelial Cells Rare /hpf (Few)
== END 2022-08-16 20:14 | disposition home or self-care (01) ==
LOC: ER 14:36
PROVIDERS: Emergency Medicine
DX: R53.1 Weakness (principal); I11.0 Hypertensive heart disease with heart failure; I50.9 Heart failure, unspecified; Z91.09 Other allergy status, other than to drugs and biological substances; Z79.899 Other long term (current) drug therapy; Z79.01 Long term (current) use of anticoagulants; Z87.891 Personal history of nicotine dependence
CPT/HCPCS: 70450; 80053; 81001; 84484; 85025; 87077; 87086; 87186; 93005; 93010; 99285-25

== ENCOUNTER → 2022-08-25 | Outpatient (CLI) | payer OTHER ==
[~2022-08-25] MED LIST changes: +HYDRA25 PO
[2022-08-26 13:49] LABS: Adenovirus F 40/41 Not Detected (NOT DETECT); Astrovirus Not Detected (NOT DETECT); Campylobacter Sp Not Detected (NOT DETECT); Cryptosporidium Not Detected (NOT DETECT); Cyclospora Cayetanensis Not Detected (NOT DETECT); E. Coli O157 Not Detected (NOT DETECT); Entamoeba Histolytica Not Detected (NOT DETECT); Enteroaggregative E. coli-EAEC Not Detected (NOT DETECT); Enteropathogenic E. coli-EPEC Not Detected (NOT DETECT); Enterotoxigenic E. coli-ETEC Not Detected (NOT DETECT); Giardia Lamblia Not Detected (NOT DETECT); Norovirus GI/GII Not Detected (NOT DETECT); Plesiomonas Shigelloides Not Detected (NOT DETECT); Rotavirus A Not Detected (NOT DETECT); Salmonella Sp Not Detected (NOT DETECT); Sapovirus Not Detected (NOT DETECT); Shiga Toxin-prod E. coli-STEC Not Detected (NOT DETECT); Shigella/Enteroin E. coli-EIEC Not Detected (NOT DETECT); Vibrio Cholerae Not Detected (NOT DETECT); Vibrio Sp Not Detected (NOT DETECT); Yersinia Enterocolitica Not Detected (NOT DETECT)
[2022-08-26 15:03] LABS: Source, Urine Voided
[2022-08-26 15:31] LABS: Appearance, Urine Clear (Clear); Bilirubin, Urine Neg (Neg); Blood, Urine 2+ (Neg); Color, Urine Yellow (P-Yellow); Glucose Qualitative, Urine Neg (Neg); Ketones, Urine Neg (Neg); Leukocyte Esterase, Urine 1+ (Neg); Nitrite, Urine Neg (Neg); Protein, Urine 2+ (Neg); Urobilinogen, Urine NORM (Normal)
[2022-08-26 15:44] LABS: Bacteria Mod /hpf; Hyaline Casts 0-2 /lpf (0-2); Squamous Epithelial Cells Rare /hpf (Few)
== END ==
LOC: LAB 11:15 → LAB SHORT 11:15
PROVIDERS: Internal Medicine
DX: N39.0 Urinary tract infection, site not specified (principal); R19.7 Diarrhea, unspecified
CPT/HCPCS: 81001; 87077; 87086; 87186; 87507

== ENCOUNTER → 2022-08-26 | Outpatient (CLI) | payer OTHER ==
[2022-08-26 15:03] LABS: Source, Urine Voided
[2022-08-26 15:31] LABS: Appearance, Urine Clear (Clear); Bilirubin, Urine Neg (Neg); Blood, Urine 2+ (Neg); Color, Urine Yellow (P-Yellow); Glucose Qualitative, Urine Neg (Neg); Ketones, Urine Neg (Neg); Leukocyte Esterase, Urine 1+ (Neg); Nitrite, Urine Neg (Neg); Protein, Urine 2+ (Neg); Urobilinogen, Urine NORM (Normal)
[2022-08-26 15:44] LABS: Bacteria Mod /hpf; Hyaline Casts 0-2 /lpf (0-2); Squamous Epithelial Cells Rare /hpf (Few)
== END | disposition home or self-care (01) ==
LOC: LAB 11:38 → LAB SHORT 11:38
PROVIDERS: Internal Medicine
DX: N39.0 Urinary tract infection, site not specified (principal)
CPT/HCPCS: 81001; 87077; 87086; 87186

== ENCOUNTER → 2022-11-14 | Outpatient (CLI) | payer OTHER ==
[2022-11-14 19:30] LABS: Source, Urine Voided
[2022-11-14 19:57] LABS: Appearance, Urine Clear (Clear); Bilirubin, Urine Neg (Neg); Blood, Urine 2+ (Neg); Color, Urine Yellow (P-Yellow); Glucose Qualitative, Urine Neg (Neg); Ketones, Urine Neg (Neg); Leukocyte Esterase, Urine Neg (Neg); Nitrite, Urine Neg (Neg); Protein, Urine 1+ (Neg); Specific Gravity, Urine 1.025 (1.003-1.022); Urobilinogen, Urine NORM (Normal)
[2022-11-14 20:35] LABS: Bacteria Few /hpf; Squamous Epithelial Cells Rare /hpf (Few); White Blood Cells, Urine 0-2 /hpf (0-5)
== END | disposition home or self-care (01) ==
LOC: LAB 17:25 → LAB SHORT 17:25
PROVIDERS: Internal Medicine
DX: N39.0 Urinary tract infection, site not specified (principal)
CPT/HCPCS: 81001

== ENCOUNTER 2022-12-18 16:13 | Inpatient (IN) | payer OTHER ==
[~2022-12-18] VITALS: Ht 172.7 cm; Wt 105.5 kg
[~2022-12-18 16:13] MED LIST changes: +ARTIFICIAL TEA1 EAC6 BOTHEYES; -LUBRICATING TEA15 ML; +ZYRTEC10 M2 PO; -ZYRTEC10 M3 PO
[2022-12-18 16:57] LABS: BASOPHILS PERCENT AUTO 0 % (0-2); EOSINOPHILS ABSOLUTE AUTO 0.03 K/mm3 (0.00-0.68); EOSINOPHILS PERCENT AUTO 1 % (0-6); Hemoglobin 11.1 g/dL (13.5-17.5); IMMATURE GRAN ABSOLUTE AUTO 0.02 K/mm3 (0.00-0.10); IMMATURE GRAN PERCENT AUTO 1 % (0-1); LYMPHOCYTES ABSOLUTE AUTO 0.55 K/mm3 (0.84-5.20); LYMPHOCYTES PERCENT AUTO 18 % (21-46); MONOCYTES ABSOLUTE AUTO 0.57 K/mm3 (0.16-1.47); MONOCYTES PERCENT AUTO 19 % (4-13); Mean Corpuscular HGB 31.4 pg (26.0-34.0); Mean Corpuscular HGB Conc 34.7 g/dL (31.5-36.5); Mean Corpuscular Volume 91 fL (80-100); Mean Platelet Volume 9.5 fL (9.1-12.4); NEUTROPHILS ABSOLUTE AUTO 1.85 K/mm3 (1.96-9.15); NEUTROPHILS PERCENT AUTO 61 % (41-73); Platelet Count 173 K/mm3 (150-400); RDW Coefficient Variation 15.6 % (11.7-14.2); RDW Standard Deviation 51.3 fL (35.1-46.3); Red Blood Cell Count 3.53 M/mm3 (4.30-5.90); White Blood Cell Count 3.02 K/mm3 (4.00-11.30)
[2022-12-18 17:09] LABS: Albumin, Blood 2.9 g/dL (3.4-5.0); Albumin/Globulin Ratio 0.8 (0.8-1.8); Bilirubin, Total 0.5 mg/dL (0.1-1.0); Bun/Creatinine Ratio 30.7 (12.0-20.0); Calcium, Blood 8.1 mg/dL (8.5-10.1); Creatinine, Blood 0.52 mg/dL (0.60-1.20); Globulin, Blood 3.6 g/dL (2.2-4.0); Potassium, Blood 3.7 mmol/L (3.5-5.5); Total Protein, Blood 6.5 g/dL (6.4-8.2)
[2022-12-18 18:23] LABS: Source, Urine Straight Cath
[2022-12-18 18:29] LABS: Influenza A, PCR NEGATIVE (NEGATIVE); Influenza B, PCR NEGATIVE (NEGATIVE); Resp Syncytial Virus, PCR NEGATIVE (NEGATIVE)
[2022-12-18 18:32] LABS: SARS-Cov-2 (COVID-19) PCR, MMC POSITIVE (NEGATIVE)
[2022-12-18 18:44] LABS: Bilirubin, Urine Neg (Neg); Blood, Urine 4+ (Neg); Glucose Qualitative, Urine Neg (Neg); Ketones, Urine Neg (Neg); Leukocyte Esterase, Urine Neg (Neg); Nitrite, Urine Neg (Neg); Protein, Urine 2+ (Neg); Urobilinogen, Urine 1+ (Normal)
[2022-12-18 19:00] LABS: Appearance, Urine Hazy (Clear); Color, Urine Yellow (P-Yellow)
[2022-12-18 19:01] LABS: White Blood Cells, Urine 0-2 /hpf (0-5)
[2022-12-18 19:02] LABS: Bacteria Few /hpf; Mucus Mod (0-Heavy); Squamous Epithelial Cells Rare /hpf (Few)
[2022-12-19 00:47] LABS: International Normalized Ratio 1.85; Prothrombin Time Results 18.7 Sec (9.7-11.5)
--- NOTE | 2022-12-19 05:25 | NUR ---
NEW ADMIT/DIRECTOR OF PRODUCT DESIGN SUMMARY PT ARRIVED TO ROOM AT 2340; TRAV ACCOMPANIED. PT ADMIT F/ACUTE RESP FAILURE AND COVID POSITIVE. FULL CODE. PT LIVES IN [facility]. PT HX OF LEWEY BODY DEMENTIA. PT LETHARGIC/DROWSY; DIFFICULT TO AROUSE; RESPONSIVE TO PAIN AND SOME VERBAL STIMULI. VSS. PT ON 2L O2 NC. UNABLE TO ASSESS ORIENTATION. PER 'S REPORT; PT HAS DX OF MARILIN BUT CAN'T TOLERATE THE CPAP; PT SUPPLEMENTS WITH OXYGEN AT NIGHT ONLY. WHEELCHAIR BOUND AT BASELINE; NONAMBULATORY; FEET EXTERNAL ROTATION. PT WILL USE URINAL WITH ASSISTANCE AND BED HAGER FOR BM. PT IS USUALLY CONT DURING DAY; INCONTINENT AT NIGHT. BRIEF IN PLACE. PT IS HARD OF HEARING AND WEARS GLASSES-- TOOK HEARING AIDS AND GLASSES HOME; PLANS TO BRING WHEN SHE COMES TO VISIT. PT HX OF AFIB AND HEART FAILURE. ON TELE; RHYTHM STRIP NORMAL SINUS IN 60'S; DURING THE NIGHT ICE PLANT OPERATOR CALLED TO REPORT BRIEF DIP INTO THE 30'S WITH A 2-3 SECOND PAUSE. PLACED CALL LIGHT IN REACH. SET BED ALARM. BED LOCKED/LOW. WILL CONT TO MONITOR.
[2022-12-19 13:11] LABS: International Normalized Ratio 1.75; Prothrombin Time Results 17.7 Sec (9.7-11.5)
[2022-12-19 13:14] LABS: Albumin, Blood 3.1 g/dL (3.4-5.0); Anion Gap 6 mmol/L (6-16); Blood Urea Nitrogen 12 mg/dL (8-24); Bun/Creatinine Ratio 26.7 (12.0-20.0); CO2, Blood 28 mmol/L (21-32); Calcium, Blood 8.5 mg/dL (8.5-10.1); Chloride, Blood 104 mmol/L (98-108); Creatinine, Blood 0.45 mg/dL (0.60-1.20); Glomerular Filtration Rate 108 (60-); Glucose, Blood 140 mg/dL (70-99); Phosphorus, Blood 2.9 mg/dL (2.5-4.9); Potassium, Blood 3.8 mmol/L (3.5-5.5); Sodium, Blood 138 mmol/L (136-145)
[2022-12-19 13:15] LABS: Hematocrit 38.6 % (37.0-53.0); Hemoglobin 12.9 g/dL (13.5-17.5); Mean Corpuscular HGB 31.1 pg (26.0-34.0); Mean Corpuscular HGB Conc 33.4 g/dL (31.5-36.5); Mean Corpuscular Volume 93 fL (80-100); Mean Platelet Volume 9.5 fL (9.1-12.4); Platelet Count 165 K/mm3 (150-400); RDW Coefficient Variation 15.5 % (11.7-14.2); RDW Standard Deviation 52.2 fL (35.1-46.3); Red Blood Cell Count 4.15 M/mm3 (4.30-5.90); White Blood Cell Count 3.92 K/mm3 (4.00-11.30)
--- NOTE | 2022-12-19 23:47 | NUR ---
PATIENT COMBATIVE DURING CARE AND ACTIVELY ATTEMPTING TO STRIKE BLOWS AT STAFF. HE GRABBED CCNA'S HAND AND REFUSED TO LET GO FOR APPROXIMATELY 2 MINUTES. HE IS CONFUSED, AND UNABLE TO FOLLOW DIRECTIONS. CHARGE NURSE NOTIFIED ABOUT OCCURENCE AND DECISION WAS MADE TO TRANSFER HIM TO A SECURE ROOM WITH MONITORING.
--- NOTE | 2022-12-20 00:42 | NUR ---
REPORT RECIEVED FROM DIRK AND ASSUMED CARE OF PT AT 0005. THIS RN AGREES TO HS SHIFT ASSESSMENT FINDINGS. HE CONT'S AGGITATED UPON TRANSFER TO SCU, HAS BEEN YELLING INTO HALLS AND PULLING AT LINES. MADE AWARE AND HALDOL 2.5MG IV Q6 PRN RX'D W/1ST DOSE RECIEVED, AWAITING EFFECT. CAMERA MONITORING IN PROGRESS AND BED ALARM ON. NO S/S DISTRESS OTHER THAN AMS AND AGGITATION. WCTM CLOSELY.
--- NOTE | 2022-12-20 03:15 | NUR ---
SUMMARY: PT ORIENTED TO SELF ONLY AND TRANSFERRED TO SCU FOR INCREASED AMS, IRRITABILITY, PULLING AT LINES AND DIFFICULTY REDIRECTING. HIS MENTATION WAXES AND WANES W/MOMENTS OF CONFUSION AND CLARITY. HE HAS LEWY BODY DEMENTIA AT BASELINE AND COMES FROM [facility]. HALDOL IV RX'D AND RECIEVED PRN FOR GOOD EFFECT AT CALMING PT. HE'S ON CAMERA MONITORING W/BED ALARM ON FOR FALL RISK. PT ASSISTED W/REPOSITIONING FOR SBD PREVENTION, COCCYX PINK AND ATTENDS CHANGED PRN FOR INCONTINENCE. PG IS SL'D BUT TUBING HAD TO BE REPLACED THIS SHIFT D/T PT RIPPING IT APART. LINE IS PATENT BUT DOES NOT DRAW FOR LABS. HE REMAINS ON 2L O2 AT HS W/SPO2 WNL, RESPS E/U. HE'S NSR ON TELEMETRY AT 60'S BPM. NO ACUTE CHANGES, VSS/AFEBRILE. WCTM AND REPORT TO DAY RN.
[2022-12-20 07:02] LABS: Hematocrit 36.3 % (37.0-53.0); Hemoglobin 12.3 g/dL (13.5-17.5); Mean Corpuscular HGB 31.2 pg (26.0-34.0); Mean Corpuscular HGB Conc 33.9 g/dL (31.5-36.5); Mean Corpuscular Volume 92 fL (80-100); Mean Platelet Volume 10.1 fL (9.1-12.4); Platelet Count 180 K/mm3 (150-400); RDW Coefficient Variation 15.2 % (11.7-14.2); RDW Standard Deviation 51.8 fL (35.1-46.3); Red Blood Cell Count 3.94 M/mm3 (4.30-5.90); White Blood Cell Count 5.28 K/mm3 (4.00-11.30)
[2022-12-20 07:14] LABS: International Normalized Ratio 1.91; Prothrombin Time Results 19.2 Sec (9.7-11.5)
[2022-12-20 07:19] LABS: Albumin, Blood 2.8 g/dL (3.4-5.0); Anion Gap 3 mmol/L (6-16); Blood Urea Nitrogen 11 mg/dL (8-24); Bun/Creatinine Ratio 24.4 (12.0-20.0); CO2, Blood 32 mmol/L (21-32); Calcium, Blood 8.3 mg/dL (8.5-10.1); Chloride, Blood 102 mmol/L (98-108); Creatinine, Blood 0.45 mg/dL (0.60-1.20); Glomerular Filtration Rate 108 (60-); Glucose, Blood 118 mg/dL (70-99); Phosphorus, Blood 2.3 mg/dL (2.5-4.9); Potassium, Blood 4.2 mmol/L (3.5-5.5); Sodium, Blood 137 mmol/L (136-145)
[2022-12-20] MEDS ORDERED: K-Phos Origina500 MG PO (10:51)
[2022-12-20] MEDS ORDERED: DECADRON6 M1 PO (10:52)
[2022-12-20 12:16] LABS: SARS-Cov-2 (COVID-19) Antigen Positive (NEGATIVE)
== END 2022-12-20 13:03 | disposition home or self-care (01) | DRG 871 ==
LOC: ER 16:13 → MEDS 23:32
PROVIDERS: Internal Medicine; Student in an Organized Health Care Education/Training Program; ADMIT Internal Medicine
PROC: XW033E5 Introduction of Remdesivir Anti-infective into Peripheral Vein, Percutaneous Approach, New Technology Group 5 (ICD-10-PCS; principal; 2022-12-18)
PROC: 3E0333Z Introduction of Anti-inflammatory into Peripheral Vein, Percutaneous Approach (ICD-10-PCS; 2022-12-18)
DX: A41.89 Other specified sepsis (principal); G92.8 Other toxic encephalopathy; U07.1 COVID-19; I48.20 Chronic atrial fibrillation, unspecified; J98.11 Atelectasis; G31.83 Neurocognitive disorder with Lewy bodies; F02.80 Dementia in other diseases classified elsewhere, unspecified severity, without behavioral disturbance, psychotic disturbance, mood disturbance, and anxiety; G47.33 Obstructive sleep apnea (adult) (pediatric); I11.0 Hypertensive heart disease with heart failure; R13.10 Dysphagia, unspecified; N40.0 Benign prostatic hyperplasia without lower urinary tract symptoms; I50.812 Chronic right heart failure; E86.0 Dehydration; Z99.81 Dependence on supplemental oxygen; Z28.21 Immunization not carried out because of patient refusal; Z98.890 Other specified postprocedural states; Z87.891 Personal history of nicotine dependence; Z91.048 Other nonmedicinal substance allergy status; Z79.01 Long term (current) use of anticoagulants; Z79.899 Other long term (current) drug therapy
CPT/HCPCS: 0241U; 36415; 51701; 71045; 74177; 80053; 80069; 81001; 83605; 84145; 85025; 85027; 85610; 87426; 92610; 93005; 93010; 96374-59; 99285-25; A9270; C9113; C9803; J0248; J1100; J1630; J2060; J7030; J7050; Q9967

== ENCOUNTER → 2022-12-27 | Outpatient (CLI) | payer OTHER ==
[~2022-12-27] MED LIST changes: +DECADRON6 M1 PO; +K-Phos Origina500 MG PO
[2022-12-27 18:48] LABS: Source, Urine Clean Catch
[2022-12-27 19:25] LABS: Appearance, Urine Clear (Clear); Bilirubin, Urine Neg (Neg); Blood, Urine Neg (Neg); Color, Urine Amber (P-Yellow); Glucose Qualitative, Urine Neg (Neg); Ketones, Urine 1+ (Neg); Leukocyte Esterase, Urine Neg (Neg); Nitrite, Urine Neg (Neg); Protein, Urine 2+ (Neg); Specific Gravity, Urine 1.015 (1.003-1.022); Urobilinogen, Urine 1+ (Normal)
[2022-12-27 19:35] LABS: Hyaline Casts 0-2 /lpf (0-2)
[2022-12-27 19:36] LABS: Bacteria Mod /hpf; Mucus Mod (0-Heavy); Red Blood Cells, Urine 0-2 /hpf (0-2); Squamous Epithelial Cells Rare /hpf (Few); White Blood Cells, Urine 0-2 /hpf (0-5)
== END | disposition home or self-care (01) ==
LOC: LAB SHORT 17:00
PROVIDERS: Internal Medicine
DX: N39.0 Urinary tract infection, site not specified (principal)
CPT/HCPCS: 81001; 87086

== ENCOUNTER → 2023-01-03 | Outpatient (CLI) | payer OTHER ==
[2023-01-03 15:30] LABS: Source, Urine Clean Catch
[2023-01-03 17:39] LABS: Appearance, Urine Hazy (Clear); Blood, Urine Neg (Neg); Color, Urine Amber (P-Yellow); Glucose Qualitative, Urine Neg (Neg); Ketones, Urine 1+ (Neg); Leukocyte Esterase, Urine 1+ (Neg); Nitrite, Urine Neg (Neg); Protein, Urine 2+ (Neg); Urobilinogen, Urine 2+ (Normal)
[2023-01-03 18:42] LABS: Bilirubin, Urine 1+ (Neg)
[2023-01-03 18:44] LABS: Bacteria Many /hpf; Mucus Mod (0-Heavy); Red Blood Cells, Urine 0-2 /hpf (0-2); Squamous Epithelial Cells Rare /hpf (Few)
== END ==
LOC: LAB SHORT 13:30
PROVIDERS: Internal Medicine
DX: N39.0 Urinary tract infection, site not specified (principal)
CPT/HCPCS: 81001

== ENCOUNTER 2023-01-22 15:05 | Inpatient (IN) | payer OTHER ==
[~2023-01-22] VITALS: Ht 170.2 cm; Wt 103.8 kg
[2023-01-22 16:12] LABS: BASOPHILS ABSOLUTE AUTO 0.01 K/mm3 (0.00-0.23); BASOPHILS PERCENT AUTO 0 % (0-2); EOSINOPHILS ABSOLUTE AUTO 0.01 K/mm3 (0.00-0.68); EOSINOPHILS PERCENT AUTO 0 % (0-6); Hematocrit 33.3 % (37.0-53.0); Hemoglobin 10.8 g/dL (13.5-17.5); IMMATURE GRAN ABSOLUTE AUTO 0.07 K/mm3 (0.00-0.10); IMMATURE GRAN PERCENT AUTO 1 % (0-1); LYMPHOCYTES ABSOLUTE AUTO 0.77 K/mm3 (0.84-5.20); LYMPHOCYTES PERCENT AUTO 9 % (21-46); MONOCYTES ABSOLUTE AUTO 0.41 K/mm3 (0.16-1.47); MONOCYTES PERCENT AUTO 5 % (4-13); Mean Corpuscular HGB 30.4 pg (26.0-34.0); Mean Corpuscular HGB Conc 32.4 g/dL (31.5-36.5); Mean Corpuscular Volume 94 fL (80-100); Mean Platelet Volume 9.5 fL (9.1-12.4); NEUTROPHILS ABSOLUTE AUTO 7.66 K/mm3 (1.96-9.15); NEUTROPHILS PERCENT AUTO 86 % (41-73); Platelet Count 306 K/mm3 (150-400); RDW Coefficient Variation 16.1 % (11.7-14.2); RDW Standard Deviation 54.9 fL (35.1-46.3); Red Blood Cell Count 3.55 M/mm3 (4.30-5.90); White Blood Cell Count 8.93 K/mm3 (4.00-11.30)
[2023-01-22 16:29] LABS: Albumin, Blood 2.3 g/dL (3.4-5.0); Albumin/Globulin Ratio 0.5 (0.8-1.8); Bilirubin, Total 0.8 mg/dL (0.1-1.0); Bun/Creatinine Ratio 19.2 (12.0-20.0); Calcium, Blood 8.3 mg/dL (8.5-10.1); Creatinine, Blood 0.62 mg/dL (0.60-1.20); Globulin, Blood 4.5 g/dL (2.2-4.0); Potassium, Blood 3.5 mmol/L (3.5-5.5); Total Protein, Blood 6.8 g/dL (6.4-8.2)
[2023-01-22 16:34] LABS: Source, Urine Straight Cath
[2023-01-22 16:37] LABS: Appearance, Urine Hazy (Clear); Bilirubin, Urine Neg (Neg); Blood, Urine 2+ (Neg); Color, Urine Yellow (P-Yellow); Glucose Qualitative, Urine 1+ (Neg); Ketones, Urine 1+ (Neg); Leukocyte Esterase, Urine Neg (Neg); Nitrite, Urine Neg (Neg); Protein, Urine 3+ (Neg); Specific Gravity, Urine 1.015 (1.003-1.022); Urobilinogen, Urine 2+ (Normal)
[2023-01-22 16:52] LABS: RBC Cast 0-2 /lpf (0)
[2023-01-22 16:54] LABS: Mucus Heavy (0-Heavy)
[2023-01-22 16:55] LABS: Amorphous Mod (0-Heavy)
[2023-01-22 16:56] LABS: Bacteria Many /hpf; Squamous Epithelial Cells Few /hpf (Few)
[2023-01-22 18:17] LABS: Influenza A, PCR NEGATIVE (NEGATIVE); Influenza B, PCR NEGATIVE (NEGATIVE); Resp Syncytial Virus, PCR NEGATIVE (NEGATIVE)
[2023-01-22 19:43] LABS: SARS-Cov-2 (COVID-19) PCR, MMC POSITIVE (NEGATIVE)
[2023-01-22 22:58] LABS: International Normalized Ratio 1.34; Prothrombin Time Results 13.8 Sec (9.7-11.5)
--- NOTE | 2023-01-23 | NUR ---
TRANSFER NOTE PT TO THE FLOOR AT 2345 BY MAT DUMONT AND SLID TO HOSPITAL BED WITH FOUR PERSON ASSIST. PT AGITATED WITH STAFF BY MOVING AND ROLLING. RECTAL TEMP PROBE PLACED TO MONITOR PT'S FEVER. PT UPSET WITH THIS AND ATTEMPTED SWATTING AT ANDREI RN. PT REPOSITIONED AND COVERED WITH SHEET. PT REQUESTING TO BE LEFT ALONE. BED IN LOWEST POSITION, THREE SIDERAILS UP, BED ALARM ON. UNABLE TO ASSESS ORIENTATION AT THIS TIME.
--- NOTE | 2023-01-23 00:18 | NUR ---
CONTACTED DR MILLER REGARDING ORDER FOR PO DEPAKOTE AND CONCERN THAT PT IS LETHARGIC AND AN ASPIRATION RISK. ORDER CHANGED TO IV KEREYMUNDORA.
[2023-01-23 01:52] LABS: PCO2 Arterial 45.3 mmHg (35-45); PO2 Arterial 73.5 mmHg (80-100)
--- NOTE | 2023-01-23 02:15 | NUR ---
CONTACTED DR MILLER REGARDING PT'S BP TRENDING DOWN. VERBAL ORDER FOR ANOTHER 500 ML BOLUS OF NS AND FOLLOW UP CALL AFTER BOLUS COMPLETED.
--- NOTE | 2023-01-23 02:45 | NUR ---
PT ARRIVES FROM PCU TO ICU 8. BEDSIDE REPORT RECIEVED FROM SMITHA Loera RN. PT IS ALERT, CONFUSED, AND MUMBLING. O2 3L VIA NC. CONTINUOUS CARDIAC MONITORING. HR 70'S, MAP >65, RR 16, SPO2 96%. IV 20GA LFA PATENT. ATTENDS CHANGED. RECTAL TEMP PROBE IN PLACE. IV ANTIBIOTICS STARTED PER EMAR.
--- NOTE | 2023-01-23 02:50 | NUR ---
PT BECAME MORE LETHARGIC AND LESS RESPONSIVE, PULLING AWAY FROM PAIN BUT NOT OPENING HIS EYES OR INTERACTING. ORDER FOR ABG OBTAINED FROM DR MILLER. ABG WITHIN NORMAL LIMITS. PT PLACED ON CPAP FOR SLEEP APNEA. BP CONTINUES TO TREND DOWN AFTER [address] MILLER WAS CONTACTED AGAIN AND VERBAL ORDER GIVEN TO CHANGE PT STATUS TO ICU AND HE WILL PLACE ORDER FOR LEVOPHED.
--- NOTE | 2023-01-23 02:53 | NUR ---
CONTACTED PT'S TRAV AT [phone]. INFORMED HER THAT HE HAS BEEN MOVED TO ICU AND SHE CAN VISIT IN THE MORNING.
[2023-01-23 03:19] LABS: BASOPHILS ABSOLUTE AUTO 0.01 K/mm3 (0.00-0.23); BASOPHILS PERCENT AUTO 0 % (0-2); EOSINOPHILS ABSOLUTE AUTO 0.04 K/mm3 (0.00-0.68); EOSINOPHILS PERCENT AUTO 1 % (0-6); Hematocrit 31.3 % (37.0-53.0); Hemoglobin 10.1 g/dL (13.5-17.5); IMMATURE GRAN ABSOLUTE AUTO 0.04 K/mm3 (0.00-0.10); IMMATURE GRAN PERCENT AUTO 1 % (0-1); LYMPHOCYTES PERCENT AUTO 30 % (21-46); MONOCYTES ABSOLUTE AUTO 0.49 K/mm3 (0.16-1.47); MONOCYTES PERCENT AUTO 7 % (4-13); Mean Corpuscular HGB 30.4 pg (26.0-34.0); Mean Corpuscular HGB Conc 32.3 g/dL (31.5-36.5); Mean Corpuscular Volume 94 fL (80-100); Mean Platelet Volume 9.1 fL (9.1-12.4); NEUTROPHILS ABSOLUTE AUTO 4.01 K/mm3 (1.96-9.15); NEUTROPHILS PERCENT AUTO 61 % (41-73); Platelet Count 257 K/mm3 (150-400); RDW Coefficient Variation 16.3 % (11.7-14.2); RDW Standard Deviation 55.4 fL (35.1-46.3); Red Blood Cell Count 3.32 M/mm3 (4.30-5.90); White Blood Cell Count 6.59 K/mm3 (4.00-11.30)
[2023-01-23 03:36] LABS: Bun/Creatinine Ratio 21.3 (12.0-20.0); Calcium, Blood 7.9 mg/dL (8.5-10.1); Creatinine, Blood 0.52 mg/dL (0.60-1.20); Potassium, Blood 3.7 mmol/L (3.5-5.5)
--- NOTE | 2023-01-23 06:23 | NUR ---
SUMMARY PT REMAINS CONFUSED BUT COOPERATIVE. SLEPT COMFORTABLY AFTER BEING ADMITTED TO ICU. PT IS ABLE TO MAKE PURPOSEFUL MOVEMENTS AND ABLE TO MAKE SMALL CHANGES TO BODY POSITION. CONTINUOUS CARDIAC MONITORING. PT HAD A RUN OF VENTRICULAR RHYTHM, STRIP SAVED IN CHART. SINUS RHYTHM 60'S, MAP >65, SBP 100-120'S. 3L O2 VIA NC. RR 12-16, SPO2 >97%. ASSESSMENTS REMAIN UNCHANGED. TKO INFUSING THROUGH 20GA LFA.
--- NOTE | 2023-01-23 06:29 | NUR ---
UPDATE: PER INFECTION CONTROL PT DOES NOT NEED TO BE IN ISOLATION. PRECAUTIONS REMOVED.
--- NOTE | 2023-01-23 08:00 | NUR ---
PT SOMULENT. HE AWAKENS TO VOICE, BUT IS DISORIENTED AND CONFUSED. PT UNABLE TO FOLLOW COMMANDS AND HIS SPEECH IS COMPLETLY GARBLED. PT BELLE, BUT VERY WEAK. PT IS AFEBRILE. ECG SHOWS SR WITH PVC'S. SBP 120-130'S. TRACE EDEMA NOTED TO LOWER EXTREMITIES. LUNGS SLIGHTLY COARSE TO UPPER LOBES AND DIMINISHED IN THE BASES. SATS>90% ON 2 LITERS NASAL. PT NPO HE APPEARS TO UNABLE TO CLEAR EVEN HIS ORAL SECRETIONS. PT INCONTINENT OF LARGE AMOUNT OF TORY URINE. EMMA CARE DONE, ATTENDS CHANGES, AND PT TURNED TO RIGHT SIDE.
--- NOTE | 2023-01-23 10:00 | NUR ---
PT SOMEWHAT MORE ALERT. PT ORIENTED TO SELF AND ABLE TO STATE THE YEAR. PT STILL UNABLE TO FOLLOW COMMANDS. LEFT ELBOW WITH SCATTERED PETECHIAE NOTED. PT INCONTINENT OF LARGE AMOUNT OF TORY URINE. EMMA CARE DONE, CALAZIME APPLIED, AND ATTENDS CHANGED. PT REPOSITIONED TO LEFT SIDE.
[2023-01-23 11:55] LABS: Prolactin 6.1 ng/mL (2.5-17.4); Thyroid Stimulating Hormone 1.9 uIU/mL (0.360-4.800)
--- NOTE | 2023-01-23 12:00 | NUR ---
PT REPORTS "MY NECK HURTS!" PT REMAINS AFEBRILE, VSS. LUNGS COARSE TO UPPER LOBES AND DIMINISHED IN THE BASES. MAINTAINS SATS>90% ON 2 LITERS NASAL CANULA AND NO NOTED SOB. SPEECH THERAPY EVAL HAS BEEN ORDERED ONCE PT IS MORE AWAKE, ALERT, AND ABLE TO FOLLOW COMMANDS. UNTIL THEN, PT IS AT HIGH RISK FOR ASPIRATION AND WILL REMAIN NPO. PT INCONTINENT OF URINE-EMMA CARE, CALAZIME APPLIED, ATTENDS CHANGED, AND PT REPOSITIONED.
--- NOTE | 2023-01-23 13:15 | NUR ---
PT CONTINUES TO REPORT NECK PAIN. DR. CRAIG UPDATED-TORADOL ORDERED FOR PAIN.
--- NOTE | 2023-01-23 15:15 | NUR ---
PT HAS BEEN RESTING QUIETLY SINCE MEDICATED WITH TORADOL. PT AWAKENED TO VOICE AND REQUESTED TO "PEE." PT ABLE TO VOID 175 CC VIA URINAL. NO OTHER ACUTE CHANGES-REPORT PHONED TO STEPHANIE SPEARS IN PREP TO TRANSFER PT TO ROOM 350.
--- NOTE | 2023-01-23 15:33 | NUR ---
PT ARRIVED TO UNIT AT THIS TIME, SLIDE TRANSFER. PT RESTING COMFORTABY T/O TRANSFER. 2L NC AT THIS TIME. VSS. IV ABX RUNNING
[2023-01-23] MEDS ORDERED: MELATONIN5 M1 PO (16:38)
[2023-01-23] MEDS ORDERED: LORA10ER PO (16:39)
[2023-01-23] MEDS ORDERED: DIVA125EC PO (16:39)
[2023-01-23] MEDS ORDERED: ELIQUIS5 M2 PO (16:40)
[2023-01-23] MEDS ORDERED: Diflucan150 MG PO (16:41)
[2023-01-23] MEDS ORDERED: FURO20 PO (16:49)
[2023-01-23] MEDS ORDERED: HYDRA25 PO (16:50)
[2023-01-23] MEDS ORDERED: VISBIOME 112.51 EACH PO (16:53)
--- NOTE | 2023-01-23 17:36 | NUR ---
SHIFT SUMMARY A&OX1-2, PT IRRITABLE W/ STAFF PERFORMING CARE. AT BEDSIDE. 2L NC. BEDREST. AWAITING SPEECH EVAL PER REPORT PT UNSAFE TO HAVE ORAL INTAKE AT THIS TIME. CALL LIGHT W/IN REACH. RECIEVING IV ABX
[2023-01-24 02:48] LABS: BASOPHILS ABSOLUTE AUTO 0.03 K/mm3 (0.00-0.23); BASOPHILS PERCENT AUTO 1 % (0-2); EOSINOPHILS ABSOLUTE AUTO 0.09 K/mm3 (0.00-0.68); EOSINOPHILS PERCENT AUTO 2 % (0-6); Hematocrit 30.4 % (37.0-53.0); IMMATURE GRAN ABSOLUTE AUTO 0.03 K/mm3 (0.00-0.10); IMMATURE GRAN PERCENT AUTO 1 % (0-1); LYMPHOCYTES ABSOLUTE AUTO 1.45 K/mm3 (0.84-5.20); LYMPHOCYTES PERCENT AUTO 31 % (21-46); MONOCYTES ABSOLUTE AUTO 0.35 K/mm3 (0.16-1.47); MONOCYTES PERCENT AUTO 8 % (4-13); Mean Corpuscular HGB 30.8 pg (26.0-34.0); Mean Corpuscular HGB Conc 32.9 g/dL (31.5-36.5); Mean Corpuscular Volume 94 fL (80-100); NEUTROPHILS PERCENT AUTO 58 % (41-73); Platelet Count 239 K/mm3 (150-400); RDW Coefficient Variation 15.9 % (11.7-14.2); RDW Standard Deviation 53.7 fL (35.1-46.3); Red Blood Cell Count 3.25 M/mm3 (4.30-5.90); White Blood Cell Count 4.65 K/mm3 (4.00-11.30)
[2023-01-24 03:02] LABS: Vancomycin, Trough 12.4 ug/mL (5.0-10.0)
[2023-01-24 03:30] LABS: Anion Gap 5 mmol/L (6-16); Blood Urea Nitrogen 11 mg/dL (8-24); Bun/Creatinine Ratio 26.6 (12.0-20.0); CO2, Blood 25 mmol/L (21-32); Calcium, Blood 7.7 mg/dL (8.5-10.1); Chloride, Blood 109 mmol/L (98-108); Creatinine, Blood 0.41 mg/dL (0.60-1.20); Glomerular Filtration Rate 112 (60-); Glucose, Blood 81 mg/dL (70-99); Magnesium, Blood 1.7 mg/dL (1.6-2.4); Phosphorus, Blood 1.8 mg/dL (2.5-4.9); Potassium, Blood 3.1 mmol/L (3.5-5.5); Sodium, Blood 139 mmol/L (136-145)
--- NOTE | 2023-01-24 06:29 | NUR ---
PT CONFUSED, CALLS OUT WHEN AWAKE. MINIMAL SLEEP. CHANGED WITH TURNS.
--- NOTE | 2023-01-24 16:40 | NUR ---
PT IS ALERT. ORIENTED TO SELF. THE PT HAS BEEN SLEEPY T/O THE DAY. PT HAS SLURRED SPEECH. THE PT WAS EVALUATED BY SPEECH THERAPY TODAY AND STARTED ON A PUREE DIET. THE PTS WAS AT THE BEDSIDE FOR MOST OF THE DAY. PT IS BEDREST TURNED T/O THE DAY CALL LIGHT IN REACH WILL CONTINUE TO MONIOTR AND ASSESS FOR CHANGES
[2023-01-25] MEDS ORDERED: CRANBERRY PO (00:28)
[2023-01-25] MEDS ORDERED: ASCORBIC ACID PO (00:28)
[2023-01-25] MEDS ORDERED: PROBIOTIC1 EA13 PO (00:33)
[2023-01-25] MEDS ORDERED: SYSTANE BALANCE10 ML BOTHEYES (00:34)
--- NOTE | 2023-01-25 02:18 | NUR ---
PT WITH BP 88/57 ASYMPTOMATIC, ATTEMPT TO LET DR KNOW, HE STATES HE WILL CALL BACK
--- NOTE | 2023-01-25 05:45 | NUR ---
PT CONTINUES TO BE CONFUSED, YELLING OUT AND THINKING PEOPLE ARE IN THE ROOM WHEN WAKING UP. SM BOWEL MOVEMENT. LOW BP EARLY AM, IV FLUIDS STARTED PER . UNABLE TO GET BLOOD BLACK FROM POWER GLIDES, POSITIONAL.FREQUENT TURNS.
[2023-01-25 06:09] LABS: BASOPHILS ABSOLUTE AUTO 0.03 K/mm3 (0.00-0.23); BASOPHILS PERCENT AUTO 1 % (0-2); EOSINOPHILS ABSOLUTE AUTO 0.11 K/mm3 (0.00-0.68); EOSINOPHILS PERCENT AUTO 3 % (0-6); Hemoglobin 9.5 g/dL (13.5-17.5); IMMATURE GRAN ABSOLUTE AUTO 0.02 K/mm3 (0.00-0.10); IMMATURE GRAN PERCENT AUTO 1 % (0-1); LYMPHOCYTES ABSOLUTE AUTO 1.51 K/mm3 (0.84-5.20); LYMPHOCYTES PERCENT AUTO 43 % (21-46); MONOCYTES ABSOLUTE AUTO 0.36 K/mm3 (0.16-1.47); MONOCYTES PERCENT AUTO 10 % (4-13); Mean Corpuscular HGB 30.5 pg (26.0-34.0); Mean Corpuscular HGB Conc 32.8 g/dL (31.5-36.5); Mean Corpuscular Volume 93 fL (80-100); Mean Platelet Volume 9.5 fL (9.1-12.4); NEUTROPHILS ABSOLUTE AUTO 1.48 K/mm3 (1.96-9.15); NEUTROPHILS PERCENT AUTO 42 % (41-73); Platelet Count 251 K/mm3 (150-400); RDW Coefficient Variation 15.9 % (11.7-14.2); RDW Standard Deviation 53.9 fL (35.1-46.3); Red Blood Cell Count 3.11 M/mm3 (4.30-5.90); White Blood Cell Count 3.51 K/mm3 (4.00-11.30)
[2023-01-25 06:27] LABS: Albumin, Blood 1.8 g/dL (3.4-5.0); Anion Gap 5 mmol/L (6-16); Blood Urea Nitrogen 7 mg/dL (8-24); Bun/Creatinine Ratio 14.8 (12.0-20.0); CO2, Blood 26 mmol/L (21-32); Calcium, Blood 7.5 mg/dL (8.5-10.1); Chloride, Blood 110 mmol/L (98-108); Creatinine, Blood 0.47 mg/dL (0.60-1.20); Glomerular Filtration Rate 107 (60-); Glucose, Blood 100 mg/dL (70-99); Phosphorus, Blood 2.1 mg/dL (2.5-4.9); Potassium, Blood 3.2 mmol/L (3.5-5.5); Sodium, Blood 141 mmol/L (136-145)
--- NOTE | 2023-01-25 16:34 | NUR ---
SPN SHIFT SUMMARY Pt RESTING IN BED. WAS A&O TO SELF. ORAL FOOD AND FLUIDS WERE TAKEN IN WELL THIS SHIFT. Pt HAS 2 POWERGLIDES ONE IN [place] [facility] IN [facility]. TELE RUNING SINUS 60'S ALL DAY WITH DROP TO HIGH 50'S AROUND 1400. Pt INCONT TWICE THIS SHIFT. CALL LIGHT IS IN REACH. WILL CONTINUE TO MONITOR AND PROVIDE CARE.
--- NOTE | 2023-01-25 18:25 | NUR ---
I have reviewed psychiatric nursing assistant documentation & agree with assessment.
[2023-01-26 02:08] LABS: BASOPHILS ABSOLUTE AUTO 0.02 K/mm3 (0.00-0.23); BASOPHILS PERCENT AUTO 1 % (0-2); EOSINOPHILS ABSOLUTE AUTO 0.08 K/mm3 (0.00-0.68); EOSINOPHILS PERCENT AUTO 2 % (0-6); Hematocrit 26.5 % (37.0-53.0); Hemoglobin 8.7 g/dL (13.5-17.5); IMMATURE GRAN ABSOLUTE AUTO 0.02 K/mm3 (0.00-0.10); IMMATURE GRAN PERCENT AUTO 1 % (0-1); LYMPHOCYTES ABSOLUTE AUTO 1.45 K/mm3 (0.84-5.20); LYMPHOCYTES PERCENT AUTO 36 % (21-46); MONOCYTES ABSOLUTE AUTO 0.45 K/mm3 (0.16-1.47); MONOCYTES PERCENT AUTO 11 % (4-13); Mean Corpuscular HGB 30.5 pg (26.0-34.0); Mean Corpuscular HGB Conc 32.8 g/dL (31.5-36.5); Mean Corpuscular Volume 93 fL (80-100); Mean Platelet Volume 9.3 fL (9.1-12.4); NEUTROPHILS ABSOLUTE AUTO 2.02 K/mm3 (1.96-9.15); NEUTROPHILS PERCENT AUTO 50 % (41-73); Platelet Count 238 K/mm3 (150-400); RDW Coefficient Variation 15.8 % (11.7-14.2); Red Blood Cell Count 2.85 M/mm3 (4.30-5.90); White Blood Cell Count 4.04 K/mm3 (4.00-11.30)
[2023-01-26 02:33] LABS: Magnesium, Blood 1.9 mg/dL (1.6-2.4)
[2023-01-26 02:37] LABS: Albumin, Blood 1.7 g/dL (3.4-5.0); Anion Gap 3 mmol/L (6-16); Blood Urea Nitrogen 6 mg/dL (8-24); Bun/Creatinine Ratio 10.3 (12.0-20.0); CO2, Blood 28 mmol/L (21-32); Calcium, Blood 7.5 mg/dL (8.5-10.1); Chloride, Blood 111 mmol/L (98-108); Creatinine, Blood 0.58 mg/dL (0.60-1.20); Glomerular Filtration Rate 100 (60-); Glucose, Blood 132 mg/dL (70-99); Potassium, Blood 3.4 mmol/L (3.5-5.5); Sodium, Blood 142 mmol/L (136-145); Vancomycin, Trough 20.7 ug/mL (5.0-10.0)
--- NOTE | 2023-01-26 05:16 | NUR ---
PT CONTINUES TO BE CONFUSED, AWAKE MOST OF NIGHT YELLING OUT. PT VERY EDEMITIS T/O, ATTEMPT TO ELEVATE RUE, PT NOT ABLE TO FOLLOW DIRECTIONS. PITTING EDEMA T/O.
--- NOTE | 2023-01-26 15:57 | NUR ---
SHIFT SUMMARY PT RESTING QUIETLY AT START OF SHIFT, BUT WOKE AGAIN EVERY COUPLE OF MINUTES CALLING OUT. PT HAS BEEN PLEASANT AND CO-OP WITH CARE. HX OF LEWY BODY DEMENTIA, ORIGINALLY FROM [place]. NOT WANTING PT TO GO TO [facility] FOR REHAB, BUT WANTING PT TO RETURN TO [place]. SHELL MACHINE OPERATOR IN TO TALK WITH AND LATER DR CRAIG. IV ABX D/C'D AND PER , PT TO BE OBSERVED FOR SYMPTOMS OF INFECTION OVER WEEKEND AND THEN MAY BE ABLE TO RETURN ON MONDAY. PT CLEANED AND CHANGED FOR INCONTINENCE. REPOSITIONED THRU OUT SHIFT. PT UNABLE TO ASSIST WITH ANY TURNING; VERY HEAVY 2P MAX ASSIST EVEN TO MOVE IN BED. IN TO VISIT BEFORE LUNCH AND ASSISTED PT TO EAT WHILE HERE. GONE AT THIS TIME. PT RESTING QUIETLY.
--- NOTE | 2023-01-26 17:19 | NUR ---
Pt resting was planning on leaving for a bit to do some shopping. We had a lengthy discussion about his needs and prognosis. We also discussed caregiver stress and her failing health. She expressed her fears and not being able to look up lewey body dementia. She is glad he had a sleep study he has been struggling with breathing. He has been wearing a mouth prosthetic and oxygen which insurance will not cover. So they have high our of pocket costs. He does not have a neurologist and dr Massey has been helping with his care. We discussed suffering and hospice care for neurological diseases. We discussed her considering downsizing. She is not wanting to face that. she states before he went to [facility] she was struggling with him falling and had to call looking glass fire almost daily. She states some one called [facility]PS on her. She was somewhat repetative and very fatigued. She stats last night she got home and sat down and fell asleep in the chair and had a hard time getting up. She woke up at 3am and was distraught. She has support from her one son and two graduahgters she states her other son is struggling with acceptance. Gave her the hard choices book. Praised and acknowledged her love and commitment. Will follow up with tramaine on our conversation. Will ask her if I can contact her grandusghter. Updated gericare aide. will update chaplian.
[2023-01-27 05:08] LABS: BASOPHILS ABSOLUTE AUTO 0.02 K/mm3 (0.00-0.23); BASOPHILS PERCENT AUTO 0 % (0-2); EOSINOPHILS ABSOLUTE AUTO 0.16 K/mm3 (0.00-0.68); EOSINOPHILS PERCENT AUTO 4 % (0-6); Hematocrit 28.8 % (37.0-53.0); Hemoglobin 9.4 g/dL (13.5-17.5); IMMATURE GRAN ABSOLUTE AUTO 0.05 K/mm3 (0.00-0.10); IMMATURE GRAN PERCENT AUTO 1 % (0-1); LYMPHOCYTES ABSOLUTE AUTO 1.63 K/mm3 (0.84-5.20); LYMPHOCYTES PERCENT AUTO 36 % (21-46); MONOCYTES ABSOLUTE AUTO 0.42 K/mm3 (0.16-1.47); MONOCYTES PERCENT AUTO 9 % (4-13); Mean Corpuscular HGB 30.7 pg (26.0-34.0); Mean Corpuscular HGB Conc 32.6 g/dL (31.5-36.5); Mean Corpuscular Volume 94 fL (80-100); Mean Platelet Volume 9.6 fL (9.1-12.4); NEUTROPHILS ABSOLUTE AUTO 2.24 K/mm3 (1.96-9.15); NEUTROPHILS PERCENT AUTO 50 % (41-73); Platelet Count 255 K/mm3 (150-400); RDW Standard Deviation 55.3 fL (35.1-46.3); Red Blood Cell Count 3.06 M/mm3 (4.30-5.90); White Blood Cell Count 4.52 K/mm3 (4.00-11.30)
[2023-01-27 05:37] LABS: Albumin, Blood 1.9 g/dL (3.4-5.0); Anion Gap 1 mmol/L (6-16); Blood Urea Nitrogen 4 mg/dL (8-24); Bun/Creatinine Ratio 8.2 (12.0-20.0); CO2, Blood 32 mmol/L (21-32); Calcium, Blood 7.7 mg/dL (8.5-10.1); Chloride, Blood 108 mmol/L (98-108); Creatinine, Blood 0.49 mg/dL (0.60-1.20); Glomerular Filtration Rate 106 (60-); Glucose, Blood 106 mg/dL (70-99); Magnesium, Blood 1.9 mg/dL (1.6-2.4); Phosphorus, Blood 2.2 mg/dL (2.5-4.9); Potassium, Blood 3.4 mmol/L (3.5-5.5); Sodium, Blood 141 mmol/L (136-145)
[2023-01-27 15:47] LABS: Vancomycin, Trough 6.3 ug/mL (5.0-10.0)
--- NOTE | 2023-01-27 16:50 | NUR ---
SHIFT SUMMARY PT SLEEPING AT START OF SHIFT. WOKE FOR CARE. ATE ALL OF BREAKFAST THIS AM. ONCE AWAKE THIS MORNING, PT REMAINED AWAKE MOST OF THE DAY. PT HAS BEEN PLEASANT AND CO-OP. VSS; SEE CHART. NO C/O. REPOSITIONED OFF BUTTOCKS THRU OUT SHIFT. CALL LT IN REACH. PT WAITING TO D/C BACK TO [facility] ON MONDAY.
--- NOTE | 2023-01-28 18:34 | NUR ---
Met with and her sister. Spoke with pt he was more alert. is truggling with acceptance. She went home last night and read respecting choices book. She is strarting to thinkg keeping him a [facility] on hospice is a better plan. We did not discuss changing code status yet. She was taking inventory of his life and was more frail and repetative today. She has compression fractures in her back and on more pain medications. Will update doctor jose and jesus as it is his primary. Pt at risk for injury or illness. Her sister has come to hlep her. Will update sonali at [facility] advisor on monday.
--- NOTE | 2023-01-28 19:48 | NUR ---
SUMMARY- PT A/O X2-3. PT HAS THICK SPEECH, FORGETFUL AND CALLS OUT FREQ. DEPENDANT IN CARE. FEEDER, PUREE THIN LIQ, PT HAD SOME SPUTTERING AT TIMES WITH THINS. WILL HAVE SPEECH RE-EVAL TOMORROW. IN ROOM THIS PM AND ASSISTED PT WITH DINNER AND ALSO REQ THICK LIQ. PT CONT/INCONT URINE. PLAN BACK TO [place] ON MON. REPORTED TO NOC STEPHANIE BROUSSARD
--- NOTE | 2023-01-29 04:15 | NUR ---
SHIFT SUMMERY, PT RESTING IN BED, PT SLEEPING PEACFULY AND FOR A WHILE MOANING AND TALKING HALFS ASLEEP AND VERY LOUDLY FOR A WHILE THEN PT FELL BACK ASLEEP AND SEEMS TO BE RESTING WELL AT THIS TIME.
[2023-01-29 05:46] LABS: BASOPHILS ABSOLUTE AUTO 0.02 K/mm3 (0.00-0.23); BASOPHILS PERCENT AUTO 1 % (0-2); EOSINOPHILS ABSOLUTE AUTO 0.15 K/mm3 (0.00-0.68); EOSINOPHILS PERCENT AUTO 3 % (0-6); Hematocrit 28.1 % (37.0-53.0); Hemoglobin 9.2 g/dL (13.5-17.5); IMMATURE GRAN ABSOLUTE AUTO 0.03 K/mm3 (0.00-0.10); IMMATURE GRAN PERCENT AUTO 1 % (0-1); LYMPHOCYTES ABSOLUTE AUTO 2.22 K/mm3 (0.84-5.20); LYMPHOCYTES PERCENT AUTO 51 % (21-46); MONOCYTES PERCENT AUTO 9 % (4-13); Mean Corpuscular HGB 30.5 pg (26.0-34.0); Mean Corpuscular HGB Conc 32.7 g/dL (31.5-36.5); Mean Corpuscular Volume 93 fL (80-100); Mean Platelet Volume 9.6 fL (9.1-12.4); NEUTROPHILS ABSOLUTE AUTO 1.54 K/mm3 (1.96-9.15); NEUTROPHILS PERCENT AUTO 35 % (41-73); Platelet Count 248 K/mm3 (150-400); RDW Coefficient Variation 16.1 % (11.7-14.2); Red Blood Cell Count 3.02 M/mm3 (4.30-5.90); White Blood Cell Count 4.36 K/mm3 (4.00-11.30)
[2023-01-29 06:10] LABS: Albumin, Blood 1.9 g/dL (3.4-5.0); Anion Gap 2 mmol/L (6-16); Blood Urea Nitrogen 7 mg/dL (8-24); Bun/Creatinine Ratio 15.6 (12.0-20.0); CO2, Blood 33 mmol/L (21-32); Calcium, Blood 8.3 mg/dL (8.5-10.1); Chloride, Blood 104 mmol/L (98-108); Creatinine, Blood 0.45 mg/dL (0.60-1.20); Glomerular Filtration Rate 108 (60-); Glucose, Blood 105 mg/dL (70-99); Magnesium, Blood 1.8 mg/dL (1.6-2.4); Sodium, Blood 139 mmol/L (136-145)
--- NOTE | 2023-01-29 18:03 | NUR ---
pt comfortable resting well today will update [facility] tomorrow.
--- NOTE | 2023-01-29 18:35 | NUR ---
SUMMARY- PT HAS HX DEMENTIA, IS ALERT AND ORIENTED TO SELF, PLACE AND FAMILY. FOLLOWS SIMPLE COMMANDS. IS BED BOUND AND DEPENDANT IN CARE. INCONT B/B, HAD MULD SEMIFORMED ORANGE FOUL SMELLING STOOLS. PT TOLERATING PUREED FOOD AND PLACED ON THICKENED FLUIDS FOR FREQ ASPIRATION AND COUGHING ON THINS AND PUT IN SPEECH EVAL FOR MON. IN PM TO FEED PT DINNER. PLAN FOR BACK TO [place] [facility] ON MONDAY. WILL REPORT TO CLIMATOLOGIST.
--- NOTE | 2023-01-30 05:20 | NUR ---
SHIFT SUMMERY. PT RESTING IN BED. PT MAKING CHANDRAKANT NOISED EARLY IN SHIFT. PT FELL ASLEEP AFTER TAKING HIS MEDS WITH APPLESAUSE. PT SLEPT A FEW HRS THEN WA SHOUTNG LOUDLY. PT SAYING THINGS THAT DID NOT MAKE ANY SENCE. BED ALARM ER TECH LIGHT IN [facility]. PT REPOSITIONED AND PILLOWS FOR COMFORT AND PREVENTION OF SKIN BREAKDOWN. PT DID FALL BACK TO SLEEP AND APPEARS TO BE SLEEPING COMFORTABLEY AT THIS TIME. PT HAD INCONTANCE IN DEPENDS.
--- NOTE | 2023-01-30 09:45 | NUR ---
MAKES NEEDS KNOW, ST SEEING PATIENT, POSSIBLE DISCHARGE BACK TO [facility], SWALLOWED NE PILL AT A TIME WITH APPLE SAUCE, NO DISTRESS, NO GRIMACING
[2023-01-30] MEDS ORDERED: Vitamin D1000 UNI1 PO (11:17)
--- NOTE | 2023-01-30 17:46 | NUR ---
NO ACUTE CHANGES, TO BE DISCHARGED TO [facility] TOMORROW, AT BEDSIDE, MOANS OUT NEEDS, UNCONSOLABLE AT TIMES, WILL RELAY TO PM RN
--- NOTE | 2023-01-30 18:35 | NUR ---
extenive conversations with the past few days. she ahsbeen reading the book hard choices for loving families and now accepts DNR. We reviewed hospice in detail. Will update diptiluizmariusz. Will also advise them that she is getting more frail and may need more help.
--- NOTE | 2023-01-30 21:42 | NUR ---
INTEMITTENT CALLING OUT. HS MEDS ADMINISTERED. INTERMITTENT ATTEMPTS TO REDIRECT AND GIVE VERBAL SUPPORT. CURRENTLY RESTING QUIETLY. CALL LIGHT IN REACH
--- NOTE | 2023-01-31 03:28 | NUR ---
HEART DOCTOR SUMMARY VSS. INTERMITTENT CALLING OUT, LOUDLY AT TIMES TO BE ARGUING WITH HIMSELF. MULTIPLE ATTEMPTS TO REDIRECT HIM. MEDS GIVEN - SEE MAR FOR DETAILS. MEDS EFFECTIVE, RESTING QUIETLY AT THIS TIME. LUNG SOUNDS DIMINISHED PER AUSCULTATION. CALL LIGHT IN REACH AND ON CAMERA FOR SAFETY. WILL CONTINUE TO MONITOR
--- NOTE | 2023-01-31 10:21 | NUR ---
DISCHARGE SUMMARY REPORT CALLED TO SHAYNA TO STEPHANIE ZHU. IV'S REMOVED WITH CATHETER TIP INTACT. PT AWAITING SCHEDULED PICKUP AT 11. WILL CONTINUE TO MONITOR UNTIL RIDE ARRIVES.
== END 2023-01-31 11:14 | disposition hospice, home (50) | DRG 91 ==
LOC: ER 15:05 → ICUE 15:06 → MEDS 15:06 → PCU 23:49 → ICUE 01-23 02:47 → MEDS 01-23 14:10 → ICUE 01-23 14:11 → MEDS 01-23 15:11
PROVIDERS: Emergency Medicine; Family Medicine; Internal Medicine; Pharmacist; ADMIT Hospitalist
PROC: 4A133R1 Monitoring of Arterial Saturation, Peripheral, Percutaneous Approach (ICD-10-PCS; principal; 2023-01-23)
PROC: 3E033XZ Introduction of Vasopressor into Peripheral Vein, Percutaneous Approach (ICD-10-PCS; 2023-01-23)
PROC: 5A09357 Assistance with Respiratory Ventilation, Less than 24 Consecutive Hours, Continuous Positive Airway Pressure (ICD-10-PCS; 2023-01-23)
DX: G92.8 Other toxic encephalopathy (principal); U07.1 COVID-19; F02.818 Dementia in other diseases classified elsewhere, unspecified severity, with other behavioral disturbance; J96.11 Chronic respiratory failure with hypoxia; E87.20 Acidosis, unspecified; R56.9 Unspecified convulsions; K59.00 Constipation, unspecified; E87.6 Hypokalemia; E83.39 Other disorders of phosphorus metabolism; Z51.5 Encounter for palliative care; Z66 Do not resuscitate; G31.83 Neurocognitive disorder with Lewy bodies; G47.33 Obstructive sleep apnea (adult) (pediatric); I48.0 Paroxysmal atrial fibrillation; I50.812 Chronic right heart failure; I11.0 Hypertensive heart disease with heart failure; I95.9 Hypotension, unspecified; E78.5 Hyperlipidemia, unspecified; M54.2 Cervicalgia; T43.595A Adverse effect of other antipsychotics and neuroleptics, initial encounter; Z87.440 Personal history of urinary (tract) infections; Z91.048 Other nonmedicinal substance allergy status; Z79.899 Other long term (current) drug therapy; Z79.02 Long term (current) use of antithrombotics/antiplatelets; Z79.01 Long term (current) use of anticoagulants; Z79.52 Long term (current) use of systemic steroids; Z98.890 Other specified postprocedural states; Z87.891 Personal history of nicotine dependence; Z85.828 Personal history of other malignant neoplasm of skin; Z99.81 Dependence on supplemental oxygen
CPT/HCPCS: 0241U; 36415; 36600; 51701; 71045; 80048; 80053; 80069; 80202; 81001; 82607; 82746; 82803; 83605; 83735; 84145; 84146; 84443; 85025; 85610; 87040; 87086; 92526; 92610; 93005; 93010; 94760; 94762; 96360-59; 96365; 96367; 96368; 96375; 99285-25; A9270; C1751; G0378; J0133; J0290; J0692; J0696; J1650; J1885; J1953; J3370; J3475; J7030; J7040; J7050; J7060; J7120